=== PATIENT | male | born 1940 | race Caucasian/White ===

== ENCOUNTER → 2020-08-05 | Outpatient (CLI) | payer MEDICARE | END | disposition home or self-care (01) | LOC: RAH 13:58 | PROVIDERS: ATTEND Urology | DX: N20.0 Calculus of kidney (principal); R31.29 Other microscopic hematuria | CPT/HCPCS: 76770 ==

== ENCOUNTER → 2020-11-11 | Outpatient (CLI) | payer MEDICARE | END | disposition home or self-care (01) | LOC: RAH 10:00 | PROVIDERS: ATTEND Urology | DX: N28.1 Cyst of kidney, acquired (principal); N40.0 Benign prostatic hyperplasia without lower urinary tract symptoms; M25.80 Other specified joint disorders, unspecified joint | CPT/HCPCS: 74176 ==

== ENCOUNTER 2024-09-07 08:00 | Inpatient (IN) | payer MEDICARE ==
--- NOTE | 2024-09-06 10:03 | EKG ---
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
[2024-09-06 10:11] LABS: BASOPHILS # (AUTO) 0.03 K/uL (0.00-0.20); BASOPHILS % (AUTO) 0.5 % (0.0-5.0); EOSINOPHILS # (AUTO) 0.07 K/uL (0.00-0.70); EOSINOPHILS % (AUTO) 1.1 % (0.0-8.0); HEMATOCRIT 41.2 % (42-54); IMMATURE GRANULOCYTE ABSOLUTE 0.02 K/uL (0-1); LYMPHOCYTES # (AUTO) 1.2 K/uL (1.0-4.8); LYMPHOCYTES % (AUTO) 17.9 % (21.0-51.0); MEAN CORPUSCULAR HEMOGLOBIN 33.2 pg (27.0-33.0); MEAN CORPUSCULAR HGB CONC 33.3 g/dL (32.0-36.0); MEAN CORPUSCULAR VOLUME 99.8 fL (79-99); MONOCYTES # (AUTO) 0.7 K/uL (0.1-1.0); MONOCYTES % (AUTO) 11.1 % (3.0-13.0); NEUTROPHILS # (AUTO) 4.5 K/uL (1.8-7.7); NEUTROPHILS % (AUTO) 69.1 % (40.0-77.0); PLATELET COUNT (AUTO) 196 K/uL (130-400); RED BLOOD CELL COUNT(AUTO) 4.13 MIL/uL (4.50-6.20); RED CELL DISTRIBUTION WIDTH 13.5 % (11.0-15.5); WHITE BLOOD COUNT (AUTO) 6.5 K/uL (4.8-10.8)
[2024-09-06 10:28] VITALS: BP 130/72; PULSE 73; RESP 16; TEMP 97.3
[2024-09-06 10:28] LABS: ALBUMIN 3.4 g/dL (3.5-5.0); BILIRUBIN,TOTAL 0.8 mg/dL (0.2-1.0); CREATININE 1.1 mg/dL (0.5-1.3); POTASSIUM 4.2 mmol/L (3.5-5.1); TOTAL PROTEIN, SERUM 6.4 g/dL (6.0-8.3)
[2024-09-06 10:31] LABS: INR 1.01 (0.85-1.15); PROTHROMBIN TIME 10.9 SEC (9.6-11.6)
[2024-09-06 10:33] LABS: PARTIAL THROMBOPLASTIN TIME 25.7 SEC (26.3-35.5)
[~2024-09-07] VITALS: Ht 175.3 cm; Wt 73.5 kg
[~2024-09-07 08:00] MED LIST: AMLO-257 PO; DUTA0.5C37 PO; LISI20TA24 PO; METO-391 PO; OMEP20CA12 PO; SENN-31 PO; TAMS-1 PO
[2024-09-11] VITALS (30 sets, daily range): BP systolic 142–200; BP diastolic 60–89; PULSE 50–97; RESP 12–18; TEMP 97.1–98.5; O2SAT 95–99
[2024-09-11] MEDS: LACTATED RINGERS 1000ML 1,000 ML IV ONE (08:15)
[2024-09-11] MEDS: MEROPENEM 1 GM VIAL ONE (08:16)
[2024-09-11] MEDS ORDERED: GLYCOPYRROLATE 0.2 MG/ML 5 ML VIAL ONE (08:20)
[2024-09-11] MEDS ORDERED: ondanSETRON 4MG INJ ONE (08:20)
[2024-09-11] MEDS ORDERED: dexaMETHasone SOD PHOSPHATE 4 MG/ML 1ML VIAL ONE (08:20)
[2024-09-11] MEDS ORDERED: NEOSTIGMINE METHYLSULFATE 1MG/ML IV ONE (08:20)
[2024-09-11] MEDS ORDERED: proPOFol 10 MG/ML 20ML VIAL IV ONE (08:20)
[2024-09-11] MEDS ORDERED: MIDAZOLAM HCL 1 MG/ML 2ML VIAL ONE (08:20)
[2024-09-11] MEDS ORDERED: rocuRONium bROMide 10MG/1ML 5ML VL ONE ×2 (08:20→09:50)
[2024-09-11] MEDS ORDERED: phenylEPHRINE HCL 10 MG/ML 1ML VIAL IV ONE (08:21)
[2024-09-11] MEDS ORDERED: FENTanyl CITRate PF 50 MCG/1 ML 2ML VIAL ONE ×2 (08:21→10:42)
[2024-09-11] MEDS ORDERED: LIDOCAINE 1%-EPI 1:100,000 20 ML VIAL ONE (08:34)
[2024-09-11] MEDS ORDERED: BUPIvacaine/PF 0.5% 30ML VIAL ONE (08:34)
[2024-09-11] MEDS ORDERED: LIDOCAINE PF 100MG/5ML (2%) SYRINGE 5ML ONE (08:38)
[2024-09-11] MEDS: LIDOCAINE 1%-EPI 1:100,000 20 ML VIAL IJ ONE (09:05)
[2024-09-11] MEDS: acetaMINOPHEN 100 ML ONE (11:20)
[2024-09-11] MEDS: hydroMORPHone 1 MG INJ ONE (11:28)
--- NOTE | 2024-09-11 11:28 | OP ---
Operative Note: DATE OF PROCEDURE: 09/11/24 SURGEON: PRATIBHA MELÉNDEZ MD HIGHWAY MAINTENANCE TECHNICIAN: [None] ANESTHESIA: [General plus local] PREOPERATIVE DIAGNOSIS: [Adenocarcinoma of the cecum] POSTOPERATIVE DIAGNOSIS: [Same] PROCEDURE: [Robotic assisted right hemicolectomy. Creation of an omental flap. Infusion of ICG for assessment of graft perfusion.] ESTIMATED BLOOD LOSS: [15 mL] INDICATIONS: [This is 84-year-old male who was found to have an adenocarcinoma of the cecum. During the staging he was found to have a 2nd primary in the lung, and after discussion with patient's oncology team decision was made to proceed with right hemicolectomy first with subsequent completion of treatment for his lung primary. After extensive discussion with the patient he was advised to undergo a resection and all other indicated procedures. Risks were abrasions and alternatives were explained in detail to the patient who granted consent. All questions were answered to the patient's satisfaction.] DESCRIPTION OF PROCEDURE: [The patient was identified in the holding area transferred to the OR placed supine on the operative table. Venodyne boots were placed for DVT prophylaxis. 1 g of IV meropenem was given within the hour of skin incision. Time-out was conducted, general anesthesia was given and the patient was prepped and draped in the usual sterile fashion. We gained access to the abdomen via Veress needle in the supraumbilical region, pneumoperitoneum was created to 15 mmHg. Under direct vision and assist port was placed in the left flank of the patient and connected to the AirSeal device. 8 mm ports were placed in the left paraumbilical region right paraumbilical region and right lower quadrant, a 12 mm port was then placed in the left lower quadrant of the patient in a horizontal fashion. The patient was tilted with the right side up and the [place] excise system was docked. We began the procedure by mobilizing the omentum from the transverse colon. This was done with no complications. The hepatic flexure was then taken down and the ascending colon mobilized all the way to the terminal ileum. Afterwards a window was created under the mesentery and the ileocolic pedicle. The pedicle was staple at the level of the duodenum were robotic laparoscopic stapler with a white load. Medial dissection was performed and the middle colic vessels, the right branch, was d issected and taken with the vessel sealer device. The transverse colon and the terminal ileum were identified for future transection. Having mobilized the colon the terminal ileum was then transected with a laparoscopic robotic blue load stapler and the same procedure performed in transverse colon. Specimen was then moved out of the surgical site and planned for the ileocolonic anastomosis was done. The terminal ileum and the transverse colon were lined up in the isoperistaltic fashion. 3 mL of ICG were given an excellent perfusion seen. Colotomy and enterotomy were performed and the anastomosis created with the robotic stapler blue load 60 mm. Excellent anastomosis was obtained as well as hemostasis. The common enterotomy was then closed in two layers with 3-0 running V lock sutures. ICG had been given an excellent perfusion seen pre after the anastomosis was completed. Having done this a step and omental flap was created and the anastomosis covered with it. The right upper quadrant and right flank were profusely irrigated and aspirated until clear. At this point having been satisfied with the dissection she has was made to Dr. Lopez and extract the specimen. Findings to incision was made the specimen extracted and passed to the back table. The 12 mm port was closed with a 0 Vicryl suture followed by Monocryl in all the port sites. The fundus incision was closed in layers with Vicryl and PDS. There was profusely irrigated with saline and Betadine. 4-0 Monocryl was used to close it followed by Dermabond no wounds. Local anesthesia had been injected. Count was done x2 per nursing and was correct. There were no complications, I was present and scrubbed for the entire case.] PRATIBHA BERGERON MD Sep 11, 2024 11:28
[2024-09-11] MEDS ORDERED: morPHINE 4 MG SYG IV PRN (11:30)
[2024-09-11] MEDS ORDERED: ondanSETRON 4MG INJ IVP PRN (11:30)
[2024-09-11] MEDS ORDERED: acetaMINOPHEN 325 MG TAB PO PRN (11:30)
[2024-09-11] MEDS: hydrALAZine 20MG/ML VIAL ONE (11:52)
[2024-09-11] MEDS: HEParin 5,000 UNIT VIAL SQ SCH (14:00)
[2024-09-11] MEDS: HYDROcodone/APAP 5/325 1 TAB TABLET PO PRN (15:26)
[2024-09-11] MEDS: INDOCYANINE GREEN 25 MG VIAL IJ ONE (18:11)
[2024-09-11] MEDS: hydrALAZine 20MG/ML VIAL IV PRN (18:13)
[2024-09-11] MEDS: D5W-1/2 NS/20MEQ KCL 1,000 ML IV SCH (18:29)
[2024-09-11] MEDS: tamSULOsin HCL 0.4 MG CAP.ER.24H PO SCH (19:53)
[2024-09-11] MEDS: LISINOPRIL 20 MG TABLET PO SCH (19:53)
[2024-09-11] MEDS: PANTOPrazole 40 MG TAB DR PO SCH (19:53)
--- NOTE | 2024-09-12 02:29 | CONS ---
[facility] CONSULTATION NOTE Date of Service: Sep 11, 2024 Reason for Consultation: [ Medical Management ] Requesting Physician: [ Dr. Damir Haider ] HISTORY OF PRESENT ILLNESS: 84-year-old male with history of hypertension, hyperlipidemia, coronary artery disease, BPH, with history of 3 cm cecal mass noted on colonoscopy from 06/2024 as well as history of lung mass being followed by Dr. Cruz as outpatient. Patient underwent robotic assisted right hemicolectomy for management of jose ocarcinoma of the cecum today. Consultation with hospitalist was requested for medical management. Patient was seen postoperatively and states that pain is well controlled. Denies any chest pain, shortness of breath, headache or focal weakness of upper or lower extremities. Patient lives by himself at home and has a friend who checks on him regularly. States that he did not take any of his antihypertensive today or last night prior to the operative procedure today. REVIEW OF SYSTEMS CONSTITUTIONAL: Denies fevers, chills, or night sweats. No unintentional weight loss reported. NEUROLOGICAL: Denies headache, amaurosis fugax, motor weakness, sensory deficit, vertigo/spinning sensation, gait abnormalities, or tremors. ENT: No hearing loss, otalgia, otorrhea, rhinitis, rhinorrhea, hoarseness, or sore throat. CARDIOVASCULAR: Denies any exertional angina, dyspnea on exertion, orthopnea, paroxysmal nocturnal dyspnea, palpitations, life-threatening arrhythmias, claudication. PULMONARY: Denies any shortness of breath, cough, phlegm/sputum, hemoptysis, pleuritic chest pain. SLEEP: Denies morning headaches, daytime somnolence or napping. Denies difficulty falling asleep, staying asleep, waking from sleep. Denies knowledge of snoring. GASTROINTESTINAL: Denies any type of dysphagia to either liquids or solids. Denies nausea, vomiting, pyrosis, early satiety, abdominal pain, diarrhea, constipation, or changes in stool consistency or caliber. Denies coffee-ground emesis, hematemesis, hematochezia, or melanotic stools. GENITOURINARY: Denies frequency, urgency, nocturia, hematuria or incontinence (Storage/Irritative symptoms.) Low urinary stream, straining to void, urinary intermittency or hesitancy, splitting of the voiding stream, terminal dribbling. ENDOCRINOLOGIC: Denies polyuria, polydipsia, polyphagia or heat/cold intolerances. HEMATOLOGIC: Denies thrombophilia/previous clots, or coagulopathy/bleeding disorders. ONCOLOGIC: Denies personal history of malignancy. DERMATOLOGIC: Denies rashes or pruritus. PSYCHIATRIC: Denies any suicidal or homicidal ideation. Denies hallucinations. PAST MEDICAL HISTORY: Hypertension, coronary artery disease status post PTCA in 1990, hyperlipidemia, nonobstructive carotid artery disease, history of lung mass being followed by Oncology as outpatient, BPH, hyperlipidemia, Wall's esophagus, GERD, diverticulosis,, gastritis, chronic kidney disease, sleep apnea PAST SURGICAL HISTORY: History of sinus surgery, history of PTCA for coronary artery disease in 1990, right shoulder surgery, history of EGD and colonoscopy in 06/2024 PAST SOCIAL HISTORY: Currently denies any active smoking or alcohol consumption FAMILY HISTORY: History of arthritis in father and heart disease in mother Allergies: No known drug allergies Home medications: Amlodipine 5 mg daily, dutasteride 0.5 mg daily, lisinopril 20 mg q.h.s., metoprolol succinate 50 mg daily, omeprazole 20 mg q.h.s., senna/docusate one tablet daily, Flomax 0.4 mg HS Coded Allergies: No Known Drug Allergies (Unverified Allergy, Unknown, 02/15/17) PHYSICAL EXAM GENERAL APPEARANCE: The patient is awake, alert, and oriented, in no acute cardiopulmonary distress. NEUROLOGICAL: Cranial nerves II-XII grossly intact. Motor is 5/5 in bilateral upper and lower extremities proximal to distal. No sensory deficits. HEENT: Face is symmetric. Pupils are equal and reactive. Extraocular movements are intact. NECK: Supple. No JVD. No thyromegaly. No submental, submandibular, pre- /postauricular, occipital or supraclavicular lymphadenopathy. CHEST: Normal chest expansion. No Telemetry. LUNGS: Absence of any rales, rhonchi or any wheezing. CARDIOVASCULAR: Regular. S1 and S2 normal. No appreciable rubs, murmurs or gallops. ABDOMEN: Soft, nontender, and nondistended. There is no rebound, voluntary guarding, or rigidity. Surgical incisions look clean dry and intact : Deferred. No Flower. EXTREMITIES: Non-edematous and not cyanotic. No clubbing. Good capillary refill. SKIN: No skin breakdown. Vital Sign (Last 24 Hours) 09/11/24 09/11/24 19:35 19:55 Temp 98.4 Pulse 75 Resp 17 B/P (MAP) 162/73 Pulse Ox 95 O2 Delivery Room Air* O2 Flow Rate 0 FiO2 21 Intake & Output (last 24hrs) 09/11/24 09/11/24 09/12/24 15:00 23:00 07:00 Intake Total 250.0 ml 300 ml Balance 250.0 ml 300 ml LABS: Labs including CBC, CMP were reviewed from 09/06/2024 DIAGNOSTICS / RADIOLOGY: SERVICE 1101 REASON: Malignant neoplasm of cecum ORDERING PHYSICIAN: FAROOQ LEONARD MD PROCEDURE: CAP WWO - CT CHEST/ABD/PELV W/WO CONTRAS CT CHEST/ABD/PELV W/WO CONTRAS REASON: Malignant neoplasm of cecum COMPARISON: 11/11/2020 TECHNIQUE: Images are obtained from thoracic inlet through the perineum following IV contrast, 100 cc Omnipaque 350. Oral contrast was administered as well. FINDINGS: There is spiculated mass in the right lung just lateral to the midportion of the hilum. This is present along the minor fissure. The mass appears flattened along the fissure in the anterior to posterior dimension. Measurements are 2.5 x 2.6 cm axial and 1.6 cm superior to inferior. CT findings appear consistent with neoplasm, however chest x-ray from 2021 shows a similar density in the mid lung field. This lesion is centrally located and not well suited for percutaneous biopsy, biopsy via bronchoscopy may be possible. Alternatively a PET/CT scan could be performed. Lungs are otherwise clear. There is no evidence of metastatic pulmonary nodule. There are moderate emphysematous changes. There is no hilar or mediastinal lymphadenopathy. Chest wall structures appear unremarkable. There are several cysts in the liver. There are no solid focal liver lesions. Spleen, kidneys and pancreas appear normal with the exception of a 4 cm left renal cyst. There is a stone in the gallbladder. There is also evidence of cholesterolosis in the gallbladder wall. There is no wall thickening or edema. There are atherosclerotic changes in the aorta and iliac vessels. There is no retroperitoneal or pelvic lymphadenopathy. There is a focal soft tissue mass anterolateral wall of the cecum measuring 1.5 x 2.7 x 0.8 cm. This does not appear to extend through the lateral wall of the cecum. Bowel loops appear otherwise unremarkable throughout. The prostate is enlarged at 6.7 x 5.9 x 6.3 cm. Seminal vesicles are symmetrical. Pelvic soft tissues appear otherwise unremarkable. There are no focal osseous lesions. IMPRESSION: 1. Spiculated mass in the lung just lateral to the right pulmonary hilum, along the central portion of the minor fissure, 1.6 x 2.5 x 2.6 cm. 2. Appearance is suspicious for neoplasm, biopsy or PET/CT scan recommended for further evaluation 3. There is a similar density seen on previous chest x-ray 2021 which could indicate this lesion is scarring rather than tumor, however the CT appearance is suspicious for tumor. 4. Mass along the lateral wall of the cecum as described, no evidence of transmural extension. 5. Otherwise unremarkable CT chest, abdomen and pelvis. DICTATED BY: KEITH OTOOLE MD DATE: 07/05/24 1222 ELECTRONICALLY SIGNED BY: KEITH OTOOLE MD DATE: 07/05/24 1238 ASSESSMENT: Status post robotic assisted right hemicolectomy for adenocarcinoma of the cecum , by Damir Bar, 09/11/2024 History of spiculated right lung mass being followed by Oncology as outpatient, POA Underlying history of coronary artery disease, POA History of hypertension, POA Hyperlipidemia POA BPH, POA History of COPD, POA MARIAN, POA Octogenarian POA History of gastritis, POA History of Wall's esophagus, POA PLAN: Continue with postoperative care in medical-surgical floor per recommendations by Colorectal surgery Continue with IV fluids, continue clear liquid diet We will resume patient's home antihypertensive therapy including amlodipine 5 mg daily, metoprolol succinate mg daily, lisinopril 20 mg q.h.s., we will start p.r.n. IV hydralazine in case SBP is greater than 170 for management of hypertension Continue with IS q.4 We will request consultation with Physical therapy All labs be repeated in the morning, continue with heparin for DVT prophylaxis Date of service: 09/11/2024 Plan of care was discussed with patient at bedside, CLEVELAND Robins MD, MD Sep 12, 2024 02:29
[2024-09-12 06:00] LABS: BASOPHILS # (AUTO) 0.02 K/uL (0.00-0.20); BASOPHILS % (AUTO) 0.2 % (0.0-5.0); HEMATOCRIT 39.1 % (42-54); IMMATURE GRANULOCYTE ABSOLUTE 0.03 K/uL (0-1); LYMPHOCYTES # (AUTO) 0.8 K/uL (1.0-4.8); LYMPHOCYTES % (AUTO) 6.5 % (21.0-51.0); MEAN CORPUSCULAR HEMOGLOBIN 33.3 pg (27.0-33.0); MEAN CORPUSCULAR HGB CONC 33.5 g/dL (32.0-36.0); MEAN CORPUSCULAR VOLUME 99.5 fL (79-99); MONOCYTES % (AUTO) 8.5 % (3.0-13.0); NEUTROPHILS # (AUTO) 9.8 K/uL (1.8-7.7); NEUTROPHILS % (AUTO) 84.5 % (40.0-77.0); PLATELET COUNT (AUTO) 218 K/uL (130-400); RED BLOOD CELL COUNT(AUTO) 3.93 MIL/uL (4.50-6.20); RED CELL DISTRIBUTION WIDTH 13.6 % (11.0-15.5); WHITE BLOOD COUNT (AUTO) 11.6 K/uL (4.8-10.8)
[2024-09-12 06:15] LABS: CREATININE 1.2 mg/dL (0.5-1.3); POTASSIUM 4.3 mmol/L (3.5-5.1)
[2024-09-12 08:00] VITALS: BP 155/69; PULSE 65; RESP 18; TEMP 98.1
--- NOTE | 2024-09-12 08:27 | PN ---
GASTROENTEROLOGY PROGRESS NOTE Date of Consultation: Sep 12, 2024 Time of Consultation: 08:25 Events / Notes: [84 yo with adenocarcinoma of cecum who underwent a robotic right hemicolectomy, creation of omental flap and ICG infusion for assessment of graft perfusion. His VSS. He is doing very well and is sitting in chair at bedside. Respirations unlabored. BBS are clear. Abd is soft and not distended. Incision D&I oneida. Active bowel sounds x4. He states he is passing flatus. He has ambulated without difficulties. He is voiding well. He has tolerated clear liquid diet. Will advance to soft. Encouraged ambulation and I/S exercises. He verbalized understanding and agreement. Daughter supportive at bedside. Review of Systems: CONSTITUTIONAL: No malaise or change in sensation of wellbeing. ENMT: No rhinorrhea, otorrhea, sinus pain, ear ache. CARDIOVASCULAR: No angina, palpitations, orthopnea or paroxysmal dyspnea. RESPIRATORY: No SOB. GASTROINTESTINAL: No abdominal pain, nausea, vomiting, diarrhea, hematemesis, melena or change in the patient's habitual bowel movements consistency/number. GENITOURINARY: No dysuria, hematuria or change in bladder continence. MUSCULOSKELETAL: No new muscle pain or decrease in muscular strength. No new joint swelling, redness or tenderness. SKIN: No new rash. Physical Exam: GEN: Awake, alert, oriented in person, time and place, and in no acute distress sitting in chair. HEENT:No rhinorrhea. Oral pharyngeal mucosa is pink, moist and within normal limits. CHEST: Inspection, palpation of the chest were unremarkable. Lung auscultation revealed normal breath sounds bilaterally. CARDIAC: . Heart sounds are regular. ABD: Soft, non-tender and not distended. No peritoneal signs on palpation. No organomegaly. Normal bowel sounds. Incisions dry & intact oneida with dermabond EXT: No cyanosis or clubbing. No edema. SKIN: Intact. No rashes. JOINTS: No evidence of synovitis or acute arthritis. NEURO: Alert and oriented to name, place and person. Cranial nerve examination is unremarkable. No focal motor deficits. Normal speech. Strength is normal. Laboratory: [ ] Laboratory: Test 09/12/24 05:49 Range/Units White Blood Count 11.6 H 4.8-10.8 K/uL Red Blood Count 3.93 L 4.50-6.20 MIL/uL Hemoglobin 13.1 L 14.0-18.0 g/dL Hematocrit 39.1 L 42-54 % Mean Corpuscular Volume 99.5 H 79-99 fL Mean Corpuscular Hemoglobin 33.3 H 27.0-33.0 pg Mean Corpuscular Hemoglobin Concent 33.5 32.0-36.0 g/dL Red Cell Distribution Width 13.6 11.0-15.5 % Platelet Count 218 130-400 K/uL Mean Platelet Volume 9.6 7.5-10.5 fL Immature Granulocyte % (Auto) 0.3 0-1 % Neutrophils (%) (Auto) 84.5 H 40.0-77.0 % Lymphocytes (%) (Auto) 6.5 L 21.0-51.0 % Monocytes (%) (Auto) 8.5 3.0-13.0 % Eosinophils (%) (Auto) 0.0 0.0-8.0 % Basophils (%) (Auto) 0.2 0.0-5.0 % Neutrophils # (Auto) 9.8 H 1.8-7.7 K/uL Lymphocytes # (Auto) 0.8 L 1.0-4.8 K/uL Monocytes # (Auto) 1.0 0.1-1.0 K/uL Eosinophils # (Auto) 0.00 0.00-0.70 K/uL Basophils # (Auto) 0.02 0.00-0.20 K/uL Absolute Immature Granulocyte (auto 0.03 0-1 K/uL Nucleated Red Blood Cells 0.0 0.0-0.19 % Sodium Level 140 136-145 mmol/L Potassium Level 4.3 3.5-5.1 mmol/L Chloride Level 104 101-111 mmol/L Carbon Dioxide Level 29 21-32 mmol/L Blood Urea Nitrogen 13 7-18 mg/dL Creatinine 1.2 0.5-1.3 mg/dL Glomerular Filtration Rate Calc 59 >90 mL/min Random Glucose 116 H 70-105 mg/dL Total Calcium 8.6 8.5-10.1 mg/dL Current Medications Medications (Trade) Dose Ordered Sig/Yareli Route PRN Reason Start Time Stop Time Status Last Admin Dose Admin Acetaminophen (TYLenol 325MG TAB) 650 mg Q4H PRN PO TEMPERATURE GREATER THAN 101 09/11/24 11:30 10/11/24 11:29 Acetaminophen/ Hydrocodone Bitart (NORco 5/325MG) 1 tab Q4H PRN PO MODERATE PAIN (4-6) 09/11/24 11:30 09/16/24 11:29 09/12/24 01:19 1 TAB Amlodipine Besylate (NorvASC 5MG TAB) 5 mg DAILY PO 09/12/24 09:00 10/12/24 08:59 Heparin Sodium (Porcine) (HEParin 5,000 UNIT VIAL) 5,000 unit TID SQ 09/11/24 14:00 10/11/24 13:59 09/11/24 20:00 5,000 UNIT Home Med (Home Medication) DAILY PO 09/12/24 09:00 10/12/24 08:59 Hydralazine HCl (APRESOLine 20MG INJ) 10 mg Q6H PRN IV ADMINISTER FOR SBP > 170 09/11/24 18:00 10/11/24 17:59 09/11/24 18:13 10 MG Lisinopril (Prinivil 20mg) 20 mg HS PO 09/11/24 21:00 10/11/24 20:59 09/11/24 19:53 20 MG Metoprolol Succinate (TopROL XL) 50 mg DAILY PO 09/12/24 09:00 10/12/24 08:59 Morphine Sulfate (morPHINE 4MG SYG) 4 mg Q3H PRN IV SEVERE PAIN (7-10) 09/11/24 11:30 09/18/24 11:29 Ondansetron HCl (zoFRAN 4MG INJ) 4 mg Q4H PRN IVP NAUSEA 09/11/24 11:30 10/11/24 11:29 Pantoprazole Sodium (PROTonix 40MG TAB) 40 mg HS PO 09/11/24 21:00 10/11/24 20:59 09/11/24 19:53 40 MG Potassium Chloride/Dextrose/ Sod Cl 1,000 ml @ 75 mls/hr [id number] IV 09/11/24 11:30 10/11/24 11:29 09/11/24 18:29 75 MLS/HR Tamsulosin HCl (FloMAX) 0.4 mg HS PO 09/11/24 21:00 10/11/24 20:59 09/11/24 19:53 0.4 MG Assessment: [Adenocarcinoma of cecum Patient is on POD 1. He is progressing very well. He has tolerated full liquid diet without any n/v. His pain is controlled. He is ambulating well. Will advance diet. Encouraged ambulation and I/s exercises. ] Plan: [Advance diet to soft Encourage ambulation tid Encourage I/S exercises Pain meds as needed Antiemetics prn Plan for disposition in the next 24-48 yours Appreciate hospitalist's assistance in our patient care. ] TIM EMMANUEL NP Sep 12, 2024 08:27
[2024-09-12 09:23] VITALS: O2SAT 97
[2024-09-12] MEDS: amLODIPine 5 MG TAB PO SCH (09:23)
[2024-09-12] MEDS: metOPROLol sucCINATE 50 MG TAB.SR.24H PO SCH (09:23)
[2024-09-12 12:00] VITALS: BP 165/72; PULSE 65; RESP 18; TEMP 97.6
--- NOTE | 2024-09-12 14:50 | PN ---
[facility] PROGRESS NOTE Date of Service: Sep 12, 2024 Time of Service: 14:[address] Lazo SUBJECTIVE: [84-year-old male with history of hypertension, hyperlipidemia, coronary artery disease, BPH, with history of 3 cm cecal noted on colonoscopy from 06/2024 as well as history of lung mass being followed by Dr. Cruz as outpatient. Patient underwent robotic assisted right hemicolectomy for management of adenocarcinoma of the cecum. Consultation with hospitalist was requested for medical management. Patient was seen postoperatively and states that pain is well controlled. Denies any chest pain, shortness of breath, headache or focal weakness of upper or lower extremities. Patient lives by himself at home and has a friend who checks on him regularly. 09/12/24 patient was seen by nurse practitioner and physician during rounding in room 306 comfortably lying in the bed. Daughter at the bedside. Patient's WBC today is 11.6 we will continue to monitor patient in the meantime a.m. labs. Anticipated discharge within 24 to 48 hours per primary. Patient denies any shortness of breath, chest pain, nausea, vomiting or any other discomfort. ] REVIEW OF SYSTEMS CONSTITUTIONAL: Denies fevers, chills, or night sweats. No unintentional weight loss reported. NEUROLOGICAL: Denies headache, amaurosis fugax, motor weakness, sensory deficit, vertigo/spinning sensation, gait abnormalities, or tremors. ENT: No hearing loss, otalgia, otorrhea, rhinitis, rhinorrhea, hoarseness, or sore throat. CARDIOVASCULAR: Denies any exertional angina, dyspnea on exertion, orthopnea, paroxysmal nocturnal dyspnea, palpitations, life-threatening arrhythmias, claudication. PULMONARY: Denies any shortness of breath, cough, phlegm/sputum, hemoptysis, pleuritic chest pain. SLEEP: Denies morning headaches, daytime somnolence or napping. Denies d ifficulty falling asleep, staying asleep, waking from sleep. Denies knowledge of snoring. GASTROINTESTINAL: Denies any type of dysphagia to either liquids or solids. Denies nausea, vomiting, pyrosis, early satiety, abdominal pain, diarrhea, constipation, or changes in stool consistency or caliber. Denies coffee-ground emesis, hematemesis, hematochezia, or melanotic stools. GENITOURINARY: Denies frequency, urgency, nocturia, hematuria or incontinence (Storage/Irritative symptoms.) Low urinary stream, straining to void, urinary intermittency or hesitancy, splitting of the voiding stream, terminal dribbling. ENDOCRINOLOGIC: Denies polyuria, polydipsia, polyphagia or heat/cold intolerances. HEMATOLOGIC: Denies thrombophilia/previous clots, or coagulopathy/bleeding disorders. ONCOLOGIC: Denies personal history of malignancy. DERMATOLOGIC: Denies rashes or pruritus. PSYCHIATRIC: Denies any suicidal or homicidal ideation. Denies hallucinations. PHYSICAL EXAM GENERAL APPEARANCE: The patient is awake, alert, and oriented, in no acute cardiopulmonary distress. NEUROLOGICAL: Cranial nerves II-XII grossly intact. Motor is 5/5 in bilateral upper and lower extremities proximal to distal. No sensory deficits. HEENT: Face is symmetric. Pupils are equal and reactive. Extraocular movements are intact. NECK: Supple. No JVD. No thyromegaly. No submental, submandibular, pre- /postauricular, occipital or supraclavicular lymphadenopathy. CHEST: Normal chest expansion. No Telemetry. LUNGS: Absence of any rales, rhonchi or any wheezing. CARDIOVASCULAR: Regular. S1 and S2 normal. No appreciable rubs, murmurs or gallops. ABDOMEN: Soft, nontender, and nondistended. There is no rebound, voluntary guarding, or rigidity. Surgical incisions look clean dry and intact : Deferred. No Flower. EXTREMITIES: Non-edematous and not cyanotic. No clubbing. Good capillary refill. SKIN: No skin breakdown. Vital Signs (last 8hr) Date Time Temp Pulse Resp B/P (MAP) Pulse Ox O2 Delivery O2 Flow Rate FiO2 09/12/24 12:00 97.5 65 18 165/72 94 Room Air 21 09/12/24 09:23 97 Room Air* 0 21 09/12/24 08:00 98.1 65 18 155/69 97 Room Air 21 LABS: Laboratory: Test 09/12/24 05:49 Range/Units White Blood Count 11.6 H 4.8-10.8 K/uL Red Blood Count 3.93 L 4.50-6.20 MIL/uL Hemoglobin 13.1 L 14.0-18.0 g/dL Hematocrit 39.1 L 42-54 % Mean Corpuscular Volume 99.5 H 79-99 fL Mean Corpuscular Hemoglobin 33.3 H 27.0-33.0 pg Mean Corpuscular Hemoglobin Concent 33.5 32.0-36.0 g/dL Red Cell Distribution Width 13.6 11.0-15.5 % Platelet Count 218 130-400 K/uL Mean Platelet Volume 9.6 7.5-10.5 fL Immature Granulocyte % (Auto) 0.3 0-1 % Neutrophils (%) (Auto) 84.5 H 40.0-77.0 % Lymphocytes (%) (Auto) 6.5 L 21.0-51.0 % Monocytes (%) (Auto) 8.5 3.0-13.0 % Eosinophils (%) (Auto) 0.0 0.0-8.0 % Basophils (%) (Auto) 0.2 0.0-5.0 % Neutrophils # (Auto) 9.8 H 1.8-7.7 K/uL Lymphocytes # (Auto) 0.8 L 1.0-4.8 K/uL Monocytes # (Auto) 1.0 0.1-1.0 K/uL Eosinophils # (Auto) 0.00 0.00-0.70 K/uL Basophils # (Auto) 0.02 0.00-0.20 K/uL Absolute Immature Granulocyte (auto 0.03 0-1 K/uL Nucleated Red Blood Cells 0.0 0.0-0.19 % White Cell Morphology Comment See comments Sodium Level 140 136-145 mmol/L Potassium Level 4.3 3.5-5.1 mmol/L Chloride Level 104 101-111 mmol/L Carbon Dioxide Level 29 21-32 mmol/L Blood Urea Nitrogen 13 7-18 mg/dL Creatinine 1.2 0.5-1.3 mg/dL Glomerular Filtration Rate Calc 59 >90 mL/min Random Glucose 116 H 70-105 mg/dL Total Calcium 8.6 8.5-10.1 mg/dL Current Medications Medications (Trade) Dose Ordered Sig/Yareli Route PRN Reason Start Time Stop Time Status Last Admin Dose Admin Acetaminophen (TYLenol 325MG TAB) 650 mg Q4H PRN PO TEMPERATURE GREATER THAN 101 09/11/24 11:30 10/11/24 11:29 Acetaminophen/ Hydrocodone Bitart (NORco 5/325MG) 1 tab Q4H PRN PO MODERATE PAIN (4-6) 09/11/24 11:30 09/16/24 11:29 09/12/24 01:19 1 TAB Amlodipine Besylate (NorvASC 5MG TAB) 5 mg DAILY PO 09/12/24 09:00 10/12/24 08:59 09/12/24 09:23 5 MG Heparin Sodium (Porcine) (HEParin 5,000 UNIT VIAL) 5,000 unit TID SQ 09/11/24 14:00 10/11/24 13:59 09/12/24 13:57 5,000 UNIT Home Med (Home Medication) DAILY PO 09/12/24 09:00 10/12/24 08:59 09/12/24 12:51 1 EACH Hydralazine HCl (APRESOLine 20MG INJ) 10 mg Q6H PRN IV ADMINISTER FOR SBP > 170 09/11/24 18:00 10/11/24 17:59 09/11/24 18:13 10 MG Lisinopril (Prinivil 20mg) 20 mg HS PO 09/11/24 21:00 10/11/24 20:59 09/11/24 19:53 20 MG Metoprolol Succinate (TopROL XL) 50 mg DAILY PO 09/12/24 09:00 10/12/24 08:59 09/12/24 09:23 50 MG Morphine Sulfate (morPHINE 4MG SYG) 4 mg Q3H PRN IV SEVERE PAIN (7-10) 09/11/24 11:30 09/18/24 11:29 Ondansetron HCl (zoFRAN 4MG INJ) 4 mg Q4H PRN IVP NAUSEA 09/11/24 11:30 10/11/24 11:29 Pantoprazole Sodium (PROTonix 40MG TAB) 40 mg HS PO 09/11/24 21:00 10/11/24 20:59 09/11/24 19:53 40 MG Potassium Chloride/Dextrose/ Sod Cl 1,000 ml @ 75 mls/hr [id number] IV 09/11/24 11:30 09/12/24 13:49 DC 09/11/24 18:29 75 MLS/HR Tamsulosin HCl (FloMAX) 0.4 mg HS PO 09/11/24 21:00 10/11/24 20:59 09/11/24 19:53 0.4 MG DIAGNOSTICS / RADIOLOGY: [ ] ASSESSMENT: Status post robotic assisted right hemicolectomy for adenocarcinoma of the cecum, by Damir Bar, 09/11/2024 History of spiculated right lung mass being followed by Oncology as outpatient, POA Underlying history of coronary artery disease, POA History of hypertension, POA Hyperlipidemia POA BPH, POA History of COPD, POA MARIAN, POA Octogenarian POA History of gastritis, POA History of Wall's esophagus, POA PLAN: Continue with postoperative care in medical-surgical floor per recommendations by Colorectal surgery Continue with IV fluids, continue clear liquid diet We will resume patient's home antihypertensive therapy including amlodipine 5 mg daily, metoprolol succinate mg daily, lisinopril 20 mg q.h.s., we will start p.r.n. IV hydralazine in case SBP is greater than 170 for management of hypertension Continue with IS q.4 We will request consultation with Physical therapy All labs be repeated in the morning continue with heparin for DVT prophylaxis ATTESTATION BY PHYSICIAN I have seen and examined the patient. I reviewed the documentation, medical decision making, and treatment plan as noted by the mid-level provider above. I agree with the findings and plan of care. Karma Lazo MD, KATARZYNA B QUANTITATIVE CONSULTANT Sep 12, 2024 14:50
[2024-09-12 16:00] VITALS: BP 165/76; PULSE 71; RESP 18; TEMP 98.1
[2024-09-12 20:00] VITALS: BP 161/72; PULSE 67; RESP 18; TEMP 98.1
[2024-09-12 22:53] VITALS: O2SAT 97
[2024-09-13] VITALS: BP 166/72; PULSE 72; RESP 18; TEMP 98.7
[2024-09-13 04:00] VITALS: BP 160/73; PULSE 67; RESP 18; TEMP 98.6
[2024-09-13 05:23] LABS: BASOPHILS # (AUTO) 0.01 K/uL (0.00-0.20); BASOPHILS % (AUTO) 0.1 % (0.0-5.0); HEMATOCRIT 34.6 % (42-54); IMMATURE GRANULOCYTE ABSOLUTE 0.02 K/uL (0-1); LYMPHOCYTES # (AUTO) 0.7 K/uL (1.0-4.8); LYMPHOCYTES % (AUTO) 8.3 % (21.0-51.0); MEAN CORPUSCULAR HEMOGLOBIN 32.9 pg (27.0-33.0); MEAN CORPUSCULAR HGB CONC 33.5 g/dL (32.0-36.0); MONOCYTES % (AUTO) 12.1 % (3.0-13.0); NEUTROPHILS # (AUTO) 6.8 K/uL (1.8-7.7); NEUTROPHILS % (AUTO) 79.3 % (40.0-77.0); PLATELET COUNT (AUTO) 162 K/uL (130-400); RED BLOOD CELL COUNT(AUTO) 3.53 MIL/uL (4.50-6.20); RED CELL DISTRIBUTION WIDTH 13.6 % (11.0-15.5); WHITE BLOOD COUNT (AUTO) 8.5 K/uL (4.8-10.8)
[2024-09-13 05:37] LABS: ALBUMIN 2.7 g/dL (3.5-5.0); CREATININE 1.1 mg/dL (0.5-1.3); MAGNESIUM 1.8 mg/dL (1.80-2.40); POTASSIUM 4.1 mmol/L (3.5-5.1); TOTAL PROTEIN, SERUM 5.3 g/dL (6.0-8.3)
--- NOTE | 2024-09-13 07:54 | DS ---
Discharge Summary DIAGNOSE(S): [Adenocarcinoma of cecum] Procedure: [Robotic assisted right hemicolectomy. Creation of an omental flap. Infusion of ICG for assessment of graft perfusion. HOSPITAL COURSE SUMMARY: [The patient has progressed well. He is tolerating soft diet without any n/v. He is ambulating well. He has had several watery stools. His pain is controlled. Plan for discharge today. HOme care instruction s with ER warnings given. Instructed to keep f/u appt at [facility] on 09/25/24 at 8:30am. ] SHIPPING AND RECEIVING ASSISTANT(S): [Hospitalists] DISCHARGE INSTRUCTIONS: [ Regular diet Ambulate tid Continue with I/S exercises No heavy lifting, pushing or pulling objects greater than 15lbs, no squatting, or twisting Report any n/v, increase in abdominal pain, fever, chest pain or sob f/u at [facility] on 09/25/24 at 8:30am at [facility] [place]. Appreciate hospitalist's assistance in our patient care. ] Home Meds Reported Medications Omeprazole (Omeprazole) 20 Mg Capsule.dr, 20 MG PO HS, CAP 11/22/21 Tamsulosin HCl (Flomax) 0.4 Mg Cap.er.24h, 0.4 MG PO HS, CAPSULE. 11/22/21 Lisinopril (Lisinopril) 20 Mg Tablet, 20 MG PO HS, TAB 11/22/21 Dutasteride (Dutasteride) 0.5 Mg Capsule, 0.5 MG PO DAILY, CAP 11/22/21 Sennosides/Docusate Sodium (Sennosides-Docusate Sodium Tab) 1 Each Tablet, 1 EACH PO DAILY, TAB 11/22/21 Amlodipine Besylate (Amlodipine Besylate) 5 Mg Tablet, 5 MG PO DAILY, TAB 11/22/21 Metoprolol Succinate (Metoprolol Succinate) 50 Mg Tab.er.24h, 50 MG PO DAILY, TAB 11/22/21 Time spent arranging discharge: 1-30 minutes TIM EMMANUEL NP Sep 13, 2024 07:54
[2024-09-13 08:00] VITALS: O2SAT 92
--- NOTE | 2024-09-13 11:28 | PN ---
[facility] PROGRESS NOTE Date of Service: Sep 13, 2024 Time of Service: 11:[address] Andrews SUBJECTIVE: [84-year-old male with history of hypertension, hyperlipidemia, coronary artery disease, BPH, with history of 3 cm cecal noted on colonoscopy from 06/2024 as well as history of lung mass being followed by Dr. Cruz as outpatient. Patient underwent robotic assisted right hemicolectomy for management of adenocarcinoma of the cecum. Consultation with hospitalist was requested for medical management. Patient was seen postoperatively and states that pain is well controlled. Denies any chest pain, shortness of breath, headache or focal weakness of upper or lower extremities. Patient lives by himself at home and has a friend who checks on him regularly. 09/12/24 patient was seen by nurse practitioner and physician during rounding in room 306 comfortably lying in the bed. Daughter at the bedside. Patient's WBC today is 11.6 we will continue to monitor patient in the meantime a.m. labs. Anticipated discharge within 24 to 48 hours per primary. Patient denies any shortness of breath, chest pain, nausea, vomiting or any other discomfort. 09/13/24 patient was seen by nurse practitioner and physician during rounding comfortably lying in the bed. Patient was discharged by primary today patient was tolerating soft diet any nausea or vomiting. Patient was also pain controlled. Patient denies any shortness of breath, chest pain, nausea, vomiting or any other discomfort at this moment] REVIEW OF SYSTEMS CONSTITUTIONAL: Denies fevers, chills, or night sweats. No unintentional weight loss reported. NEUROLOGICAL: Denies headache, amaurosis fugax, motor weakness, sensory def icit, vertigo/spinning sensation, gait abnormalities, or tremors. ENT: No hearing loss, otalgia, otorrhea, rhinitis, rhinorrhea, hoarseness, or sore throat. CARDIOVASCULAR: Denies any exertional angina, dyspnea on exertion, orthopnea, paroxysmal nocturnal dyspnea, palpitations, life-threatening arrhythmias, claudication. PULMONARY: Denies any shortness of breath, cough, phlegm/sputum, hemoptysis, pleuritic chest pain. SLEEP: Denies morning headaches, daytime somnolence or napping. Denies difficulty falling asleep, staying asleep, waking from sleep. Denies knowledge of snoring. GASTROINTESTINAL: Denies any type of dysphagia to either liquids or solids. Denies nausea, vomiting, pyrosis, early satiety, abdominal pain, diarrhea, constipation, or changes in stool consistency or caliber. Denies coffee-ground emesis, hematemesis, hematochezia, or melanotic stools. GENITOURINARY: Denies frequency, urgency, nocturia, hematuria or incontinence (Storage/Irritative symptoms.) Low urinary stream, straining to void, urinary intermittency or hesitancy, splitting of the voiding stream, terminal dribbling. ENDOCRINOLOGIC: Denies polyuria, polydipsia, polyphagia or heat/cold intolerances. HEMATOLOGIC: Denies thrombophilia/previous clots, or coagulopathy/bleeding disorders. ONCOLOGIC: Denies personal history of malignancy. DERMATOLOGIC: Denies rashes or pruritus. PSYCHIATRIC: Denies any suicidal or homicidal ideation. Denies hallucinations. PHYSICAL EXAM GENERAL APPEARANCE: The patient is awake, alert, and oriented, in no acute cardiopulmonary distress. NEUROLOGICAL: Cranial nerves II-XII grossly intact. Motor is 5/5 in bilateral upper and lower extremities proximal to distal. No sensory deficits. HEENT: Face is symmetric. Pupils are equal and reactive. Extraocular movements are intact. NECK: Supple. No JVD. No thyromegaly. No submental, submandibular, pre- /postauricular, occipital or supraclavicular lymphadenopathy. CHEST: Normal chest expansion. No Telemetry. LUNGS: Absence of any rales, rhonchi or any wheezing. CARDIOVASCULAR: Regular. S1 and S2 normal. No appreciable rubs, murmurs or gallops. ABDOMEN: Soft, nontender, and nondistended. There is no rebound, voluntary guarding, or rigidity. Surgical incisions look clean dry and intact : Deferred. No Flower. EXTREMITIES: Non-edematous and not cyanotic. No clubbing. Good capillary r efill. SKIN: No skin breakdown. Vital Signs (last 8hr) Date Time Temp Pulse Resp B/P (MAP) Pulse Ox O2 Delivery O2 Flow Rate FiO2 09/13/24 08:00 92 Room Air* 0 21 09/13/24 04:00 98.6 67 18 160/73 92 Room Air LABS: Laboratory: Test 09/13/24 04:54 09/12/24 05:49 Range/Units White Blood Count 8.5 # 4.8-10.8 K/uL Red Blood Count 3.53 L 4.50-6.20 MIL/uL Hemoglobin 11.6 L 14.0-18.0 g/dL Hematocrit 34.6 L 42-54 % Mean Corpuscular Volume 98.0 79-99 fL Mean Corpuscular Hemoglobin 32.9 27.0-33.0 pg Mean Corpuscular Hemoglobin Concent 33.5 32.0-36.0 g/dL Red Cell Distribution Width 13.6 11.0-15.5 % Platelet Count 162 # 130-400 K/uL Mean Platelet Volume 10.2 7.5-10.5 fL Immature Granulocyte % (Auto) 0.2 0-1 % Neutrophils (%) (Auto) 79.3 H 40.0-77.0 % Lymphocytes (%) (Auto) 8.3 L 21.0-51.0 % Monocytes (%) (Auto) 12.1 3.0-13.0 % Eosinophils (%) (Auto) 0.0 0.0-8.0 % Basophils (%) (Auto) 0.1 0.0-5.0 % Neutrophils # (Auto) 6.8 1.8-7.7 K/uL Lymphocytes # (Auto) 0.7 L 1.0-4.8 K/uL Monocytes # (Auto) 1.0 0.1-1.0 K/uL Eosinophils # (Auto) 0.00 0.00-0.70 K/uL Basophils # (Auto) 0.01 0.00-0.20 K/uL Absolute Immature Granulocyte (auto 0.02 0-1 K/uL Nucleated Red Blood Cells 0.0 0.0-0.19 % Sodium Level 136 136-145 mmol/L Potassium Level 4.1 3.5-5.1 mmol/L Chloride Level 101 101-111 mmol/L Carbon Dioxide Level 26 21-32 mmol/L Blood Urea Nitrogen 16 7-18 mg/dL Creatinine 1.1 0.5-1.3 mg/dL Glomerular Filtration Rate Calc 66 >90 mL/min Random Glucose 103 70-105 mg/dL Total Calcium 8.4 L 8.5-10.1 mg/dL Magnesium Level 1.80 1.80-2.40 mg/dL Total Bilirubin 1.0 0.2-1.0 mg/dL Aspartate Amino Transf (AST/SGOT) 23 10-37 U/L Alanine Aminotransferase (ALT/SGPT) 17 12-78 U/L Alkaline Phosphatase 44 L 50-136 U/L Total Protein 5.3 L 6.0-8.3 g/dL Albumin 2.7 L 3.5-5.0 g/dL White Cell Morphology Comment See comments Current Medications Medications (Trade) Dose Ordered Sig/Yareli Route PRN Reason Start Time Stop Time Status Last Admin Dose Admin Acetaminophen (TYLenol 325MG TAB) 650 mg Q4H PRN PO TEMPERATURE GREATER THAN 101 09/11/24 11:30 09/13/24 10:59 DC Acetaminophen/ Hydrocodone Bitart (NORco 5/325MG) 1 tab Q4H PRN PO MODERATE PAIN (4-6) 09/11/24 11:30 09/13/24 10:59 DC 09/12/24 01:19 1 TAB Amlodipine Besylate (NorvASC 5MG TAB) 5 mg DAILY PO 09/12/24 09:00 09/13/24 10:59 DC 09/13/24 08:51 5 MG Heparin Sodium (Porcine) (HEParin 5,000 UNIT VIAL) 5,000 unit TID SQ 09/11/24 14:00 09/13/24 10:59 DC 09/12/24 20:21 5,000 UNIT Home Med (Home Medication) DAILY PO 09/12/24 09:00 09/13/24 10:59 DC 09/13/24 08:51 1 EACH Hydralazine HCl (APRESOLine 20MG INJ) 10 mg Q6H PRN IV ADMINISTER FOR SBP > 170 09/11/24 18:00 09/13/24 10:59 DC 09/11/24 18:13 10 MG Lisinopril (Prinivil 20mg) 20 mg HS PO 09/11/24 21:00 09/13/24 10:59 DC 09/12/24 20:18 20 MG Metoprolol Succinate (TopROL XL) 50 mg DAILY PO 09/12/24 09:00 09/13/24 10:59 DC 09/13/24 08:51 50 MG Morphine Sulfate (morPHINE 4MG SYG) 4 mg Q3H PRN IV SEVERE PAIN (7-10) 09/11/24 11:30 09/13/24 10:59 DC Ondansetron HCl (zoFRAN 4MG INJ) 4 mg Q4H PRN IVP NAUSEA 09/11/24 11:30 09/13/24 10:59 DC Pantoprazole Sodium (PROTonix 40MG TAB) 40 mg HS PO 09/11/24 21:00 09/13/24 10:59 DC 09/12/24 20:18 40 MG Potassium Chloride/Dextrose/ Sod Cl 1,000 ml @ 75 mls/hr [id number] IV 09/11/24 11:30 09/12/24 13:49 DC 09/11/24 18:29 75 MLS/HR Tamsulosin HCl (FloMAX) 0.4 mg HS PO 09/11/24 21:00 09/13/24 10:59 DC 09/12/24 20:18 0.4 MG DIAGNOSTICS / RADIOLOGY: [ ] ASSESSMENT: Status post robotic assisted right hemicolectomy for adenocarcinoma of the cecum, by Damir Bar, 09/11/2024 History of spiculated right lung mass being followed by Oncology as outpatient, POA Underlying history of coronary artery disease, POA History of hypertension, POA Hyperlipidemia POA BPH, POA History of COPD, POA MARIAN, POA Octogenarian POA History of gastritis, POA History of Wall's esophagus, POA ATTESTATION BY PHYSICIAN I have seen and examined the patient. I reviewed the documentation, medical decision making, and treatment plan as noted by the mid-level provider above. I agree with the findings and plan of care. HOWIE ANDREWS MD, KATARZYNA B LOAN ANALYST Sep 13, 2024 11:28
== END 2024-09-13 10:58 | disposition home or self-care (01) | DRG 331 ==
LOC: DAHIP 09-11 06:51 → 3BH 09-11 16:50
PROVIDERS: ADMIT Surgery; ATTEND Surgery
PROC: 0DXU4ZW Transfer Omentum to Abdominal Region, Percutaneous Endoscopic Approach (ICD-10-PCS; 2024-09-11)
PROC: 8E0W4CZ Robotic Assisted Procedure of Trunk Region, Percutaneous Endoscopic Approach (ICD-10-PCS; 2024-09-11)
PROC: 4A1BXSH Monitoring of Gastrointestinal Vascular Perfusion using Indocyanine Green Dye, External Approach (ICD-10-PCS; 2024-09-11)
PROC: 0DTF4ZZ Resection of Right Large Intestine, Percutaneous Endoscopic Approach (ICD-10-PCS; principal; 2024-09-11 08:36)
DX: C18.0 Malignant neoplasm of cecum (principal); E78.5 Hyperlipidemia, unspecified; N40.0 Benign prostatic hyperplasia without lower urinary tract symptoms; G47.33 Obstructive sleep apnea (adult) (pediatric); I12.9 Hypertensive chronic kidney disease with stage 1 through stage 4 chronic kidney disease, or unspecified chronic kidney disease; I25.10 Atherosclerotic heart disease of native coronary artery without angina pectoris; G47.30 Sleep apnea, unspecified; J44.9 Chronic obstructive pulmonary disease, unspecified; N18.9 Chronic kidney disease, unspecified; Z98.61 Coronary angioplasty status; Z82.61 Family history of arthritis
CPT/HCPCS: 36415; 80048; 80053; 83735; 85025; 85610; 85730; 86850; 86900; 86901; 88309; 93005; A4344; G0378; J0360; J1100; J1171; J1644; J2003; J2185; J2250; J2371; J2405; J2704; J2710; J3010; J3480; J3490; J7030; J7120; A4215; A4216; A4221; A4222; A4223; A4600; A4649; A4663; A4930; A6260; C1769; J0665

== ENCOUNTER 2024-09-22 18:23 | Emergency (ER) | payer MEDICARE ==
[~2024-09-22] VITALS: Ht 175.3 cm; Wt 74.8 kg
--- NOTE | 2024-09-22 18:30 | ERN ---
General Chief Complaint: Urinary Retention Stated Complaint: URINARY RETENTION Time Seen by MD: 18:25 History of Present Illness Initial Comments 84-year-old male presents to the ED for evaluation of urinary retention onset today. Patient reports bladder pain, but denies any other associated symptoms at this time. Patient mentioned he had a colon mass resection on 09/15/2024 performed by . Allergies: Coded Allergies: No Known Drug Allergies (Unverified Allergy, Unknown, 02/15/17) Home Meds Reported Medications Omeprazole (Omeprazole) 20 Mg Capsule.dr, 20 MG PO HS, CAP 11/22/21 Tamsulosin HCl (Flomax) 0.4 Mg Cap.er.24h, 0.4 MG PO HS, CAPSULE.DR 11/22/21 Lisinopril (Lisinopril) 20 Mg Tablet, 20 MG PO HS, TAB 11/22/21 Dutasteride (Dutasteride) 0.5 Mg Capsule, 0.5 MG PO DAILY, CAP 11/22/21 Sennosides/Docusate Sodium (Sennosides-Docusate Sodium Tab) 1 Each Tablet, 1 EACH PO DAILY, TAB 11/22/21 Amlodipine Besylate (Amlodipine Besylate) 5 Mg Tablet, 5 MG PO DAILY, TAB 11/22/21 Metoprolol Succinate (Metoprolol Succinate) 50 Mg Tab.er.24h, 50 MG PO DAILY, TAB 11/22/21 Past Medical History Past Medical History: Cancer, Hypertension, Prostatitis Past Surgical History: Other Surgical History Other: RIGHT SHOULDER REPLACEMENT Social History Social History: Negative, Lives with family ROS Dictation Constitutional: Negative for fever,chills, and weight loss Eyes: Negative for injury, pain,redness, and discharge ENT: Negative for injury,pain or swelling Cardiovascular: Negative for chest pain, palpitations, and edema Respiratory: Negative for shortness of breath, cough, and wheezing, Abdomen/GI: Negative for abdominal pain, nausea, vomiting, diarrhea, and constipation Back: Negative for injury and pain : Positive for urinary retention, bladder pain Negative for injury, bleeding and discharge MS/Extremity: Negative for injury and deformity Skin: Negative for rash, and discoloration Neuro: Negative for headache, weakness, numbness, tingling, and seizure Psych: Negative for suicide ideation, homicidal ideation, and hallucinations Physical Exam Physical Exam Dictation General: awake, alert, NAD Head/Face: Normocephalic, atraumatic Eyes: PERRL, EOMI, vision at baseline ENT: oral cavity clear, TMs clear, no signs of infection Neck: Trachea midline, supple, no nuchal rigidity Cardiovascular: RRR, normal S1/S2, No MRGs, no JVD Respiratory: CTAB, no respiratory distress, No rales or wheezes Abdomen: Soft, moderate suprapubic tenderness, non-distended, normal bowel sounds, no guarding or rebound. Skin: Warm, dry, normal turgor, no rash MS/Extremity: Pulses equal, no cyanosis, neurovascular intact, FROM Neuro: COAx4, GCS 15, strength 5/5, CN 2-12 intact, normal cerebellar exam, normal gait, Psych: Normal behavior, mood, and affect normal MDM MDM: Differential diagnosis: Urinary retention Previous outside records reviewed: Old ER visits. Need for hospitalization: Patient does not meet criteria for hospitalization. Need for emergency major/minor surgery: No Patient's prior external medical records from other ER visits were reviewed by me as indicated. Prior testing and results from previous visits were reviewed. Prior tests were taken into account with medical decision making and resource utilization, independent historian/historians were used to obtain complete medical history. I independently interpreted the test that were performed, results were reviewed by me and considered findings on radiology if ordered. Medical management and examination interpretation discussions were had by me with other qualified healthcare professionals as indicated for the patient's care. ED Course Orders Procedure Category Date Status Time Nurse Driven Flower ANNY 09/22/24 In Process Removal Pro 18:46 Vital Signs Date Time Temp Pulse Resp B/P (MAP) Pulse Ox O2 Delivery O2 Flow Rate FiO2 09/22/24 18:53 98.8 78 20 156/84 97 Room Air* 0 21 09/22/24 18:24 98.8 64 20 173/73 99 DX & DISP Disposition: Discharge Departure Impression: Primary Impression: Urinary retention Condition: Stable Additional Instructions: FOLLOW-UP WITH PRIMARY CARE PROVIDER IN 1 TO 2 DAYS. TAKE MEDICATIONS DIRECTED HERE IN THE EMERGENCY ROOM. OKAY TO CONTINUE HOME MEDICATIONS UNLESS OTHERWISE DISCUSSED DURING YOUR VISIT IN THE EMERGENCY ROOM TODAY. RETURN TO YOUR NEAREST EMERGENCY ROOM IF SYMPTOMS WORSEN OR IF THERE IS NO IMPROVEMENT. CALL 911 IF YOU NEED IMMEDIATE ASSISTANCE. TAKE TYLENOL [id number] NEEDED AND IF NO CONTRAINDICATIONS ARE PRESENT. INCREASE ORAL HYDRATION. A WOUND CULTURE OR URINE CULTURE WAS ORDERED HERE IN THE EMERGENCY ROOM DEPARTMENT PLEASE FOLLOW-UP WITH PRIMARY CARE PROVIDER AND ADVISE THEM TO GET REPEAT PORTS FROM OUR FACILITY. IF YOU HAD ANY LEANNE WRAP/SPLINTS THAT WERE APPLIED HERE, PLEASE DO NOT REMOVE THEM UNTIL YOU SEE YOUR PRIMARY CARE OR SPECIALTY. Referrals: Referrals: KRISTAN PRINCE MD (PCP) TACOS SPRING MD Time of Disposition: 18:54 I have reviewed, & agreed with my scribe's, documentation. (Entered by Gen Ellis, acting as a scribe for Dr. Horn) I personally scribed for BENJY HORN MD ([place]) on 09/22/24 at 18:30. Electronically submitted by Gen Ellis ([employer]). I personally scribed for BENJY HORN MD ([employer]) on 09/22/24 at 18:54. Electronically submitted by Gen Ellis ([employer]). I personally scribed for BENJY HORN MD ([employer]) on 09/22/24 at 18:57. Electronically submitted by Gen Ellis ([employer]). BENJY HORN MD Sep 22, 2024 18:30
--- NOTE | 2024-09-22 18:53 | NUR ---
BLADDER SCAN PERFORMED AND 1358 FOUND. ORDER FOR DAHL OBTAINED.
--- NOTE | 2024-09-22 19:10 | NUR ---
LEG BAG ATTACHED TO PATIENT AND EDUCATION ON DAHL CARE PROVIDED TO PATIENT AND FAMILY.
[2024-09-22 19:15] VITALS: BP 163/64; PULSE 74; RESP 20; TEMP 98.4; O2SAT 97
== END 2024-09-22 19:34 | disposition home or self-care (01) ==
LOC: EDH 18:23
DX: R33.9 Retention of urine, unspecified (principal); I10 Essential (primary) hypertension; Z79.899 Other long term (current) drug therapy; Z98.890 Other specified postprocedural states
CPT/HCPCS: 51702; 99284

== ENCOUNTER 2024-10-02 19:27 | Emergency (ER) | payer MEDICARE ==
[~2024-10-02] VITALS: Ht 175.3 cm; Wt 68.9 kg
[2024-10-02 19:36] VITALS: BP 98/44; PULSE 67; RESP 20; TEMP 97
--- NOTE | 2024-10-02 19:58 | NUR ---
BLADDER SCAN READ IN EXCESS OF 280CC
--- NOTE | 2024-10-02 20:02 | ERN ---
ED Note History of Present Illness Stated Complaint: "DAHL CATH AND STILL NOT ABLE TO URINATE" Chief Complaint: Urinary Retention Time Seen by MD: 19:29 Time Seen by Midlevel: 19:33 Dictation: 84-year-old male with a history of colon CA and colon resection surgery a couple of weeks ago coming in today complaining of urinary retention. Patient states he has had a Dahl placed two weeks ago at his gastroenterology clinic, today the Dahl was removed at about 10 30 at the clinic by the provider and states has been able to urinate since. He states he has been drinking water and juices and has not been able to urinate. However patient denies having any suprapubic pain any abdominal pain, no back pain, no flank pain. Denies having any fever, nausea vomiting or diarrhea. Allergies: Coded Allergies: No Known Drug Allergies (Unverified Allergy, Unknown, 02/15/17) Home Meds Reported Medications Omeprazole (Omeprazole) 20 Mg Capsule.dr, 20 MG PO HS, CAP 11/22/21 Tamsulosin HCl (Flomax) 0.4 Mg Cap.er.24h, 0.4 MG PO HS, CAPSULE.DR 11/22/21 Lisinopril (Lisinopril) 20 Mg Tablet, 20 MG PO HS, TAB 11/22/21 Dutasteride (Dutasteride) 0.5 Mg Capsule, 0.5 MG PO DAILY, CAP 11/22/21 Sennosides/Docusate Sodium (Sennosides-Docusate Sodium Tab) 1 Each Tablet, 1 EACH PO DAILY, TAB 11/22/21 Amlodipine Besylate (Amlodipine Besylate) 5 Mg Tablet, 5 MG PO DAILY, TAB 11/22/21 Metoprolol Succinate (Metoprolol Succinate) 50 Mg Tab.er.24h, 50 MG PO DAILY, TAB 11/22/21 Past Medical History Past Medical History: Other Additional Past Medical Hx: LUNG CA Surgical History: Other Surgical History Other: BOWEL RESECTION Social History: Negative, Lives with family Review of System Dictation Constitutional: Negative for fever,chills, and weight loss Eyes: Negative for injury, pain,redness, and discharge ENT: Negative for injury,pain or swelling Cardiovascular: Negative for chest pain, palpitations, and edema Respiratory: Negative for shortness of breath, cough, and wheezing, Abdomen/GI: Negative for abdominal pain, nausea, vomiting, diarrhea, and constipation Back: Negative for injury and pain : Negative for injury, bleeding and discharge MS/Extremity: Negative for injury and deformity Skin: Negative for rash, and discoloration Neuro: Negative for headache, weakness, numbness, tingling, and seizure Psych: Negative for suicide ideation, homicidal ideation, and hallucinations Review of Systems: was completed Initial Vital Sign VS Vital Signs Date Time Temp Pulse Resp B/P (MAP) Pulse Ox O2 Delivery O2 Flow Rate FiO2 10/02/24 19:36 97.0 67 20 98/44 97 Room Air Physical Exam Dictation General: awake, alert, NAD Head/Face: Normocephalic, atraumatic Eyes: PERRL, EOMI, vision at baseline ENT: oral cavity clear, TMs clear, no signs of infection Neck: Trachea midline, supple, no nuchal rigidity Cardiovascular: RRR, normal S1/S2, No MRGs, no JVD Respiratory: CTAB, no respiratory distress, No rales or wheezes Abdomen: Soft, non-tender, non-distended, normal bowel sounds, no guarding or rebound. Skin: Warm, dry, normal turgor, no rash MS/Extremity: Pulses equal, no cyanosis, neurovascular intact, FROM Neuro: COAx4, GCS 15, strength 5/5, CN 2-12 intact, normal cerebellar exam, normal gait, Psych: Normal behavior, mood, and affect normal ED Course ED Course Orders Procedure Category Date Status Time Bladder Scan CPOE 10/02/24 Transmitted 19:36 *Nursing CPOE 10/02/24 Transmitted Communication: 19:36 Vital Signs Date Time Temp Pulse Resp B/P (MAP) Pulse Ox O2 Delivery O2 Flow Rate FiO2 10/02/24 19:36 97.0 67 20 98/44 97 Room Air Medical Decision Making MDM MDM: 84-year-old male with a history of colon CA and colon resection surgery a couple of weeks ago coming in today complaining of urinary retention. Patient states he has had a Dahl placed two weeks ago at his gastroenterology clinic, today the Dahl was removed at about 10 30 at the clinic by the provider and states has been able to urinate since. He states he has been drinking water and juices and has not been able to urinate. However patient denies having any suprapubic pain any abdominal pain, no back pain, no flank pain. Denies having any fever, nausea vomiting or diarrhea. On bladder scan patient showed 280 cc in the bladder. Dahl catheter inserted with leg bag. Educated patient that he has to follow up with the gastroenterology clinic again in 1-2 days, return if symptoms worsen. Patient verbalized understanding, answered all questions. Differential diagnosis: Dehydration, urinary retention, decreased urine output Rationale: Tests considered and ordered secondary to shared decision making include: Previous outside records reviewed: Old ER visits. Risk of complication and/or morbidity or mortality of patient management: None Medications-Per medication reconciliation Need for hospitalization: Patient does not meet criteria for hospitalization. Need for emergency major/minor surgery: No There are no social concerns with this patient. Prescription drug management Prescriptions will include symptomatic care Patient's prior external medical records from other ER visits were reviewed by me as indicated. Prior testing and results from previous visits were reviewed. Prior tests were taken into account with medical decision making and resource utilization, independent historian/historians were used to obtain complete medical history. I independently interpreted the test that were performed, results were reviewed by me and considered findings on radiology if ordered. Medical management and examination interpretation discussions were had by me with other qualified healthcare professionals as indicated for the patient's care. DX & DISP Disposition: Discharge Departure Impression: Primary Impression: Urinary retention Condition: Stable Additional Instructions: Please follow up with your specialist in 1-2 days. Return to the emergency room if any symptoms worsen. Referrals: KRISTAN PRINCE MD (PCP) Time of Disposition: 20:01 I have reviewed the case, and I agree with, Diagnosis and Plan JG RANDOLPH NP Oct 02, 2024 20:02
== END 2024-10-02 20:41 | disposition home or self-care (01) ==
LOC: EDH 19:27
DX: R33.9 Retention of urine, unspecified (principal); Z79.899 Other long term (current) drug therapy; Z98.890 Other specified postprocedural states
CPT/HCPCS: 51702; 99284

== ENCOUNTER 2024-10-04 17:40 | Emergency (ER) | payer MEDICARE ==
[~2024-10-04] VITALS: Ht 175.3 cm; Wt 68.0 kg
--- NOTE | 2024-10-04 17:55 | ERN ---
ED Note History of Present Illness Stated Complaint: DAHL CATHETER PROBLEM Chief Complaint: Urinary Catheter Problems Time Seen by MD: 17:47 Dictation: PATIENT IS AN 84-YEAR-OLD MALE COMING IN WITH A DAHL CATHETER THAT WAS PLACED AT THE [facility] LAST NIGHT IN THE EMERGENCY ROOM FOR ACUTE URINARY RETENTION. HE IS COMING IN TODAY STATING HE THINKS THAT THE URINE OUTPUT IS DECREASED. NO BLADDER SPASM OR PAIN. APPROXIMATELY 100 CC NOTED OF CLEAR LOU URINE IN LEG BAG. NO FLANK PAIN NO NAUSEA VOMITING PATIENT HAS A HISTORY OF BPH AND IS ON FLOMAX HOWEVER IS REQUESTING AN ANTIBIOTIC FOR HIS BPH. PATIENT OF . Allergies: Coded Allergies: No Known Drug Allergies (Unverified Allergy, Unknown, 02/15/17) Home Meds Reported Medications Omeprazole (Omeprazole) 20 Mg Capsule.dr, 20 MG PO HS, CAP 11/22/21 Tamsulosin HCl (Flomax) 0.4 Mg Cap.er.24h, 0.4 MG PO HS, CAPSULE.DR 11/22/21 Lisinopril (Lisinopril) 20 Mg Tablet, 20 MG PO HS, TAB 11/22/21 Dutasteride (Dutasteride) 0.5 Mg Capsule, 0.5 MG PO DAILY, CAP 11/22/21 Sennosides/Docusate Sodium (Sennosides-Docusate Sodium Tab) 1 Each Tablet, 1 EACH PO DAILY, TAB 11/22/21 Amlodipine Besylate (Amlodipine Besylate) 5 Mg Tablet, 5 MG PO DAILY, TAB 11/22/21 Metoprolol Succinate (Metoprolol Succinate) 50 Mg Tab.er.24h, 50 MG PO DAILY, TAB 11/22/21 Past Medical History Past Medical History: Other Additional Past Medical Hx: LUNG CA, LARGE INTESTINE CA Surgical History: Other Surgical History Other: BOWEL RESECTION Social History: Negative, Lives with family RN Note Reviewed/Agreed w/PFSH: Yes Review of System Dictation CONSTITUTIONAL: NEGATIVE EXCEPT FOR HPI HEAD/FACE: NEGATIVE EXCEPT FOR HPI EENT: NEGATIVE EXCEPT FOR HPI RESPIRATORY: NEGATIVE EXCEPT FOR HPI GASTROINTESTINAL/ABDOMINAL: NEGATIVE EXCEPT FOR HPI GENITOURINARY: NEGATIVE EXCEPT FOR HPI DECREASED URINE OUTPUT DAHL CATHETER MUSCULOSKELETAL: NEGATIVE EXCEPT FOR HPI INTEGUMENTARY: NEGATIVE EXCEPT FOR HPI NEUROLOGICAL/PSYCH: NEGATIVE EXCEPT FOR HPI HEMATOLOGIC/LYMPHATIC: NEGATIVE EXCEPT FOR HPI ALL SYSTEMS NEGATIVE, EXCEPT NOTED ABOVE. 13 POINT REVIEW OF SYSTEMS ASSESSED AND ALL NEGATIVE EXCEPT FOR ABOVE. Initial Vital Sign VS Vital Signs Date Time Temp Pulse Resp B/P (MAP) Pulse Ox O2 Delivery O2 Flow Rate FiO2 10/04/24 17:41 98.1 64 20 135/62 99 Room Air 10/04/24 19:09 0 21 Physical Exam Dictation VITAL SIGNS REVIEWED GENERAL APPEARANCE: ALERT, ORIENTED X 3, NO ACUTE DISTRESS, WELL DEVELOPED, NOURISHED. HEAD AND FACE: NON-TRAUMATIC. EYES: PERRL, PINK CONJUNCTIVAS, EYELID NO TRAUMA, ANTERIOR CHAMBER WITH ARCUS SENILIS. EARS: PINNAS INTACT AND NO SIGNS OF TRAUMA OR ERYTHEMA EAR CANALS CLEAR AND NO DISCHARGE TM NO ERYTHEMA NOSE: NO DISCHARGE, NO BLEEDING. OROPHARYNX: MOUTH NORMAL, TONGUE PINK, PHARYNX CLEAR,NO ERYTHEMA, TONSILS NO EXUDATES, NO ABSCESSES NOTED, MUCOUS MEMBRANE MOIST NECK: SUPPLE, NON-TENDER, NO THYROMEGALY, NO MASSES, NO JVD, NO BRUITS BREAST:DEFERRED CHEST:NO TENDERNESS, NO CREPITUS, NO PARADOXICAL MOVEMENT, NO RETRACTIONS LUNGS:CLEAR, WELL-VENTILATED, SYMMETRIC, NO RALES, NO WHEEZING, NO RHONCHI, NO STRIDOR, GOOD BREATH SOUNDS BILATERALLY HEART: REGULAR RATE, REGULAR RHYTHM, NO MURMUR, NO GALLOPS VASCULAR: NO PERIPHERAL EDEMA, ABDOMEN: SOFT, POSITIVE BOWEL SOUNDS, NONDISTENDED, NO GUARDING, NONTENDER, NO REBOUND, NO MASSES NO HEPATOMEGALY, NO SPLENOMEGALY, NO PHILLIP'S SIGN, NO HERNIAS. RECTAL: DEFERRED GENITAL: DEFERRED DAHL CATHETER TO LEG BAG LEFT. UNABLE TO PALPATE BLADDER. NO TENDERNESS WITH PALPATION APPROXIMATELY 150 CC CLEAR LOU URINE IN BAG. NEUROLOGICAL: NORMAL SPEECH, MOTOR FUNCTION INTACT, SENSORY FUNCTION INTACT MUSCULOSKELETAL: NECK NONTENDER, FULL RANGE OF MOTION, BACK NONTENDER, FULL RANGE OF MOTION, EXTREMITIES: NONTENDER, FULL RANGE OF MOTION SKIN: COLOR PINK, DRY, NO TURGOR, NO RASH, NO LACERATIONS, NO ABRASIONS, NO CONTUSIONS. LYMPHATIC: DEFERRED Results (Laboratory/Radiology) Laboratory/Radiology Laboratory Tests Test 10/04/24 18:50 Urine Color YELLOW (YELLOW) Urine Appearance CLOUDY (CLEAR) H Urine pH 5.5 (5.0-8.0) Urine Specific [place] 1.015 (1.001-1.031) Urine Protein 50 mg/dL (NEGATIVE) H Urine Glucose (UA) NEGATIVE mg/dL (NEGATIVE) Urine Ketones NEGATIVE mg/dL (NEGATIVE) Urine Occult Blood SMALL (NEGATIVE) H Urine Nitrate 2+ (NEGATIVE) H Urine Bilirubin NEGATIVE mg/dL (NEGATIVE) Urine Urobilinogen 0.2 mg/dL (0.2-1.0) Urine Leukocyte Esterase 500 Naila/uL (NEGATIVE) H Urine RBC 11-25 /HPF (0-1) H Urine WBC 51-100 /HPF (0-1) H Urine WBC Clumps (Auto) FEW /HPF (0-1) Urine Bacteria MANY /HPF (None Seen) Labs Reviewed?: Yes ED Course ED Course Orders Procedure Category Date Status Time Bladder Scan CPOE 10/04/24 Transmitted 17:52 Urinalysis Profile LAB 10/04/24 Complete 17:52 Culture Urine ALFREDO 10/04/24 In Process 19:14 Vital Signs Date Time Temp Pulse Resp B/P (MAP) Pulse Ox O2 Delivery O2 Flow Rate FiO2 10/04/24 19:09 98.1 64 20 132/62 98 Room Air* 0 21 10/04/24 17:41 98.1 64 20 135/62 99 Room Air 1940, PATIENT WILL BE TREATED FOR ACUTE CYSTITIS WITH HEMATURIA WITH LEVAQUIN. HE IS AWARE THAT HE HAD 30 ML IN HIS BLADDER OF URINE AND THAT THE DAHL CATHETER IS DRAINING. HE STATES HE HAS AN APPOINTMENT WITH IN THE NEXT WEEK. AND WAS ENCOURAGED TO KEEP IT. HE HAS ALREADY TAKEN FLOMAX 0.8 DAILY. Medical Decision Making MDM MEDICAL DISCHARGE MAKING BASED ON BLADDER SCAN AND URINALYSIS. BLADDER SCAN SHOWED 30 ML IN THE BLADDER AND DAHL IS DRAINING PATIENT HAS CYSTITIS WITH HEMATURIA AND WE WILL BE GIVEN LEVAQUIN PATIENT ALREADY ON FLOMAX AND WE WILL BE DISCHARGED HOME TO KEEP HIS APPOINTMENT WITH UROLOGY DX & DISP Disposition: Discharge Departure Impression: Primary Impression: Dahl catheter in place Additional Impressions: Acute cystitis with hematuria, History of benign prostatic hyperplasia Condition: Stable Scripts Levofloxacin (Levofloxacin) 500 Mg Tablet 1 TAB PO DAILY for 10 Days, #10 TAB 0 Refills Prov: PAPO ROMERO INFORMATION RESOURCES MANAGER 10/04/24 Additional Instructions: FOLLOW-UP WITH PRIMARY CARE PROVIDER IN 1 TO 2 DAYS. TAKE MEDICATIONS DIRECTED HERE IN THE EMERGENCY ROOM. OKAY TO CONTINUE HOME MEDICATIONS UNLESS OTHERWISE DISCUSSED DURING YOUR VISIT IN THE EMERGENCY ROOM TODAY. RETURN TO YOUR NEAREST EMERGENCY ROOM IF SYMPTOMS WORSEN OR IF THERE IS NO IMPROVEMENT. CALL 911 IF YOU NEED IMMEDIATE ASSISTANCE. TAKE TYLENOL OR MOTRIN OVER-THE- COUNTER NEEDED AND IF NO CONTRAINDICATIONS ARE PRESENT. INCREASE ORAL HYDRATION. A WOUND CULTURE OR URINE CULTURE WAS ORDERED HERE IN THE EMERGENCY ROOM DEPARTMENT PLEASE FOLLOW-UP WITH PRIMARY CARE PROVIDER AND ADVISE THEM TO GET REPEAT PORTS FROM OUR FACILITY. IF YOU HAD ANY LEANNE WRAP/SPLINTS THAT WERE APPLIED HERE, PLEASE DO NOT REMOVE THEM UNTIL YOU SEE YOUR PRIMARY CARE OR SPECIALTY. CONTINUE FLOMAX AT HOME. TAKE LEVAQUIN DIRECTED UNTIL GONE. FOLLOW UP WITH YOUR UROLOGIST IN THE NEXT SEVERAL DAYS. Referrals: KRISTAN PRINCE MD (PCP) Time of Disposition: 19:43 I have reviewed the case, and I agree with, Diagnosis and Plan PAPO ROMERO NP Oct 04, 2024 17:55
--- NOTE | 2024-10-04 18:52 | NUR ---
BLADDER SCAN RESULTS SHOWING MINIMAL URINE IN BLADDER 20CC. PER PATIENT LEG BAG HAD BEEN EMPTIED 4 TIMES SINCE LAST NIGHT FC INSERTION. DRAINED 85 CC AT THIS TIME URINE SENT TO LAB
[2024-10-04 19:08] LABS: APPEARANCE,URINE CLOUDY (CLEAR); BILIRUBIN,URINE NEGATIVE (NEGATIVE); COLOR,URINE YELLOW (YELLOW); GLUCOSE, URINE (UA) NEGATIVE (NEGATIVE); KETONES,URINE NEGATIVE (NEGATIVE); LEUKOCYTE ESTERASE ,URINE 500 Leu/uL (NEGATIVE); NITRATE,URINE 2+ (NEGATIVE); OCCULT BLOOD,URINE SMALL (NEGATIVE); PH,URINE 5.5 (5.0-8.0); PROTEIN,URINE 50 mg/dL (NEGATIVE); UROBILINOGEN,URINE 0.2 mg/dL (0.2-1.0)
[2024-10-04 19:09] VITALS: BP 132/62; PULSE 64; RESP 20; TEMP 98.1; O2SAT 98
[2024-10-04 19:14] LABS: ADD UA MICROSCOPIC YES
[2024-10-04 19:21] LABS: BACTERIA,URINE MANY /HPF (None Seen); MUCUS,URINE RARE LPF (None Seen); WBC CLUMP FEW /HPF (0-1); WBC,URINE 51-100 /HPF (0-1)
[2024-10-04] MEDS ORDERED: LEVO-70 PO (19:44)
== END 2024-10-04 19:52 | disposition home or self-care (01) ==
LOC: EDH 17:40
DX: N30.01 Acute cystitis with hematuria (principal); N40.0 Benign prostatic hyperplasia without lower urinary tract symptoms; Z79.899 Other long term (current) drug therapy; Z85.038 Personal history of other malignant neoplasm of large intestine; Z85.118 Personal history of other malignant neoplasm of bronchus and lung
CPT/HCPCS: 81001; 87086; 87186; 99284

== ENCOUNTER 2024-10-18 06:13 | Day surgery (SDC) | payer MEDICARE ==
[~2024-10-18] VITALS: Ht 175.3 cm; Wt 70.3 kg
[2024-10-18] VITALS (9 sets, daily range): BP systolic 101–132; BP diastolic 44–63; PULSE 52–64; RESP 13–20; TEMP 97.1–98.4
[2024-10-18] MEDS: 0.9%NACL 1000ML 1,000 ML IV ONE (07:39)
[2024-10-18] MEDS ORDERED: proPOFol 10 MG/ML 20ML VIAL IV ONE (08:10)
[2024-10-18] MEDS ORDERED: ondanSETRON 4MG INJ ONE (08:11)
[2024-10-18] MEDS ORDERED: LIDOCAINE PF 100MG/5ML (2%) SYRINGE 5ML ONE (08:11)
--- NOTE | 2024-10-18 09:46 | NUR ---
Patient aox4. Denies c/o pain or discomfort. Voiced understanding GI precautions and follow up expectations. Ambulated to bathroom with standby assist. Emptied out large amount of clear urine from leg bag. PIV discontinued with catheter tip intact. Full and complete Discharge instructions given to Patient and Daughter. All questions answered. W/C to POV with Daughter to Home.
[2024-10-18] MEDS ORDERED: AMOX1TAB16 PO (21:51)
== END 2024-10-18 09:40 | disposition home or self-care (01) ==
LOC: DAH 06:13 → ENDO 06:13
PROVIDERS: ATTEND Surgery
DX: C18.0 Malignant neoplasm of cecum (principal); D12.5 Benign neoplasm of sigmoid colon; D12.8 Benign neoplasm of rectum; K57.30 Diverticulosis of large intestine without perforation or abscess without bleeding; K21.9 Gastro-esophageal reflux disease without esophagitis; I12.9 Hypertensive chronic kidney disease with stage 1 through stage 4 chronic kidney disease, or unspecified chronic kidney disease; N18.9 Chronic kidney disease, unspecified; E78.5 Hyperlipidemia, unspecified; G47.30 Sleep apnea, unspecified; Z87.891 Personal history of nicotine dependence; Z82.49 Family history of ischemic heart disease and other diseases of the circulatory system; Z79.899 Other long term (current) drug therapy
CPT/HCPCS: 45338; 45331; 99284; 96365; 80048; 85025; 81001; 36415; J7030 ×3; J2003; J0696; J2704; J2405; A4615; A4215 ×2; A4223; A4657; A4222; A4221; A4663; A4606; J3490

== ENCOUNTER 2024-10-18 19:35 | Emergency (ER) | payer MEDICARE ==
[~2024-10-18] VITALS: Ht 175.3 cm; Wt 68.0 kg
--- NOTE | 2024-10-18 19:43 | ERN ---
ED Note History of Present Illness Stated Complaint: BLOOD IN URINARY CATHETER Chief Complaint: Urinary Catheter Problems Time Seen by MD: 19:37 Dictation: PATIENT IS AN 84-YEAR-OLD MALE COMING IN TODAY WITH COMPLAINTS OF HEMATURIA WITH PELVIC PAIN DYSURIA ONSET THIS AFTERNOON. HE DENIES FEVER CHILLS NAUSEA VOMITING. HE DOES STATE HE IS STATUS POST A COLONOSCOPY THIS MORNING BY DR. CLIVE EDWARDS WITHOUT COMPLICATIONS. HE STATES HE WAS NOT BLEEDING UNTIL AFTER HE WAS RELEASED IN WENT HOME. HE DENIES BEING ON ANY BLOOD THINNERS. DAHL CATHETER IS IN PLACE THAT IS CHRONIC, RIGHT LEG BAG. Allergies: Coded Allergies: No Known Drug Allergies (Unverified Allergy, Unknown, 02/15/17) Home Meds Reported Medications Omeprazole (Omeprazole) 20 Mg Capsule.dr, 20 MG PO HS, CAP 11/22/21 Tamsulosin HCl (Flomax) 0.4 Mg Cap.er.24h, 0.4 MG PO HS, CAPSULE.DR 11/22/21 Lisinopril (Lisinopril) 20 Mg Tablet, 20 MG PO HS, TAB 11/22/21 Dutasteride (Dutasteride) 0.5 Mg Capsule, 0.5 MG PO DAILY, CAP 11/22/21 Sennosides/Docusate Sodium (Sennosides-Docusate Sodium Tab) 1 Each Tablet, 1 EACH PO DAILY, TAB 11/22/21 Amlodipine Besylate (Amlodipine Besylate) 5 Mg Tablet, 5 MG PO DAILY, TAB 11/22/21 Metoprolol Succinate (Metoprolol Succinate) 50 Mg Tab.er.24h, 50 MG PO DAILY, TAB 11/22/21 Discontinued Scripts Levofloxacin (Levofloxacin) 500 Mg Tablet, 1 TAB PO DAILY for 10 Days, #10 TAB 0 Refills Prov:PAPO ROMERO NP 10/04/24 Past Medical History Past Medical History: Other Additional Past Medical Hx: LUNG CA, LARGE INTESTINE CA Surgical History: Other Surgical History Other: BOWEL RESECTION PSYCH History: no pertinent psych hx Social History: Negative, Lives with family RN Note Reviewed/Agreed w/PFSH: Yes Review of System Dictation CONSTITUTIONAL: NEGATIVE EXCEPT FOR HPI HEAD/FACE: NEGATIVE EXCEPT FOR HPI EENT: NEGATIVE EXCEPT FOR HPI RESPIRATORY: NEGATIVE EXCEPT FOR HPI GASTROINTESTINAL/ABDOMINAL: NEGATIVE EXCEPT FOR HPI GENITOURINARY: NEGATIVE EXCEPT FOR HPI SUPRAPUBIC PAIN WITH DYSURIA AND DAHL CATHETER AND GROSS HEMATURIA URINE HEMATURIA URINE MUSCULOSKELETAL: NEGATIVE EXCEPT FOR HPI INTEGUMENTARY: NEGATIVE EXCEPT FOR HPI NEUROLOGICAL/PSYCH: NEGATIVE EXCEPT FOR HPI HEMATOLOGIC/LYMPHATIC: NEGATIVE EXCEPT FOR HPI ALL SYSTEMS NEGATIVE, EXCEPT NOTED ABOVE. 13 POINT REVIEW OF SYSTEMS ASSESSED AND ALL NEGATIVE EXCEPT FOR ABOVE. Initial Vital Sign VS Vital Signs Date Time Temp Pulse Resp B/P (MAP) Pulse Ox O2 Delivery O2 Flow Rate FiO2 10/18/24 19:38 97.2 77 20 124/106 Room Air Physical Exam Dictation VITAL SIGNS REVIEWED GENERAL APPEARANCE: ALERT, ORIENTED X 3, MILD ACUTE DISTRESS, WELL DEVELOPED, NOURISHED. HEAD AND FACE: NON-TRAUMATIC. EYES: PERRL, PINK CONJUNCTIVAS, EYELID NO TRAUMA, ANTERIOR CHAMBER WITH ARCUS SENILIS. EARS: PINNAS INTACT AND NO SIGNS OF TRAUMA OR ERYTHEMA EAR CANALS CLEAR AND NO DISCHARGE TM NO ERYTHEMA NOSE: NO DISCHARGE, NO BLEEDING. OROPHARYNX: MOUTH NORMAL, TONGUE PINK, PHARYNX CLEAR,NO ERYTHEMA, TONSILS NO EXUDATES, NO ABSCESSES NOTED, MUCOUS MEMBRANE MOIST NECK: SUPPLE, NON-TENDER, NO THYROMEGALY, NO MASSES, NO JVD, NO BRUITS BREAST:DEFERRED CHEST:NO TENDERNESS, NO CREPITUS, NO PARADOXICAL MOVEMENT, NO RETRACTIONS LUNGS:CLEAR, WELL-VENTILATED, SYMMETRIC, NO RALES, NO WHEEZING, NO RHONCHI, NO STRIDOR, GOOD BREATH SOUNDS BILATERALLY HEART: REGULAR RATE, REGULAR RHYTHM, NO MURMUR, NO GALLOPS VASCULAR: NO PERIPHERAL EDEMA, ABDOMEN: SOFT, POSITIVE BOWEL SOUNDS, NONDISTENDED, NO GUARDING, NONTENDER, NO REBOUND, NO MASSES NO HEPATOMEGALY, NO SPLENOMEGALY, NO PHILLIP'S SIGN, NO HERNIAS. RECTAL: DEFERRED GENITAL: DEFERRED DAHL CATHETER IN PLACE TO RIGHT THIGH LEG BAG. GROSSLY HEMATURIA URINE IN BAG, URINE COLLECTED AND SENT TO LAB NEUROLOGICAL: NORMAL SPEECH, MOTOR FUNCTION INTACT, SENSORY FUNCTION INTACT MUSCULOSKELETAL: NECK NONTENDER, FULL RANGE OF MOTION, BACK NONTENDER, FULL RANGE OF MOTION, EXTREMITIES: NONTENDER, FULL RANGE OF MOTION SKIN: COLOR PINK, DRY, NO TURGOR, NO RASH, NO LACERATIONS, NO ABRASIONS, NO CONTUSIONS. LYMPHATIC: DEFERRED Results (Laboratory/Radiology) Laboratory/Radiology Laboratory Tests Test 10/18/24 19:42 10/18/24 20:02 Urine Color DARK-RED (YELLOW) Urine Appearance TURBID (CLEAR) Urine pH 5.5 (5.0-8.0) Urine Specific [place] 1.026 (1.001-1.031) Urine Protein 100 mg/dL (NEGATIVE) H Urine Glucose (UA) NEGATIVE mg/dL (NEGATIVE) Urine Ketones NEGATIVE mg/dL (NEGATIVE) Urine Occult Blood LARGE (NEGATIVE) H Urine Nitrate NEGATIVE (NEGATIVE) Urine Bilirubin NEGATIVE mg/dL (NEGATIVE) Urine Urobilinogen 0.2 mg/dL (0.2-1.0) Urine Leukocyte Esterase 25 Naila/uL (NEGATIVE) H Urine RBC TNTC /HPF (0-1) H Urine WBC 0-1 /HPF (0-1) Urine Squamous Epithelial Cells None Seen /HPF (0-2) Urine Bacteria Few /HPF (None Seen) White Blood Count 7.7 K/uL (4.8-10.8) Red Blood Count 3.58 MIL/uL (4.50-6.20) L Hemoglobin 11.9 g/dL (14.0-18.0) L Hematocrit 35.8 % (42-54) L Mean Corpuscular Volume 100.0 fL (79-99) H Mean Corpuscular Hemoglobin 33.2 pg (27.0-33.0) H Mean Corpuscular Hemoglobin Concent 33.2 g/dL (32.0-36.0) Red Cell Distribution Width 13.3 % (11.0-15.5) Platelet Count 207 K/uL (130-400) Mean Platelet Volume 9.7 fL (7.5-10.5) Immature Granulocyte % (Auto) 0.5 % (0-1) Neutrophils (%) (Auto) 75.7 % (40.0-77.0) Lymphocytes (%) (Auto) 11.0 % (21.0-51.0) L Monocytes (%) (Auto) 11.5 % (3.0-13.0) Eosinophils (%) (Auto) 1.0 % (0.0-8.0) Basophils (%) (Auto) 0.3 % (0.0-5.0) Neutrophils # (Auto) 5.8 K/uL (1.8-7.7) Lymphocytes # (Auto) 0.8 K/uL (1.0-4.8) L Monocytes # (Auto) 0.9 K/uL (0.1-1.0) Eosinophils # (Auto) 0.08 K/uL (0.00-0.70) Basophils # (Auto) 0.02 K/uL (0.00-0.20) Absolute Immature Granulocyte (auto 0.04 K/uL (0-1) Nucleated Red Blood Cells 0.0 % (0.0-0.19) Sodium Level 141 mmol/L (136-145) Potassium Level 3.9 mmol/L (3.5-5.1) Chloride Level 106 mmol/L (101-111) Carbon Dioxide Level 30 mmol/L (21-32) Blood Urea Nitrogen 32 mg/dL (7-18) H Creatinine 1.4 mg/dL (0.5-1.3) H Glomerular Filtration Rate Calc 49 mL/min (>90) Random Glucose 103 mg/dL (70-105) Total Calcium 8.6 mg/dL (8.5-10.1) Labs Reviewed?: Yes ED Course ED Course Orders Procedure Category Date Status Time Cbc With Differential LAB 10/18/24 Complete 19:40 Urinalysis Profile LAB 10/18/24 Complete 19:40 Basic Metabolic Panel LAB 10/18/24 Complete 19:40 Acetaminophen 500mg PHA 10/18/24 Complete Tab (Tylenol 500mg T 20:00 Phenazopyridine Hcl PHA 10/18/24 Complete 200 Mg Tab (Pyridium 20:00 0.9%Nacl 1000ml (Ns PHA 10/18/24 Complete 1000ml) 21:00 Ceftriaxone 1g Vial PHA 10/18/24 Complete (Rocephine 1g Inj) 21:00 Current Medications Medications (Trade) Dose Ordered Sig/Yareli Route PRN Reason Start Time Stop Time Status Last Admin Dose Admin Acetaminophen (TYLenol 500MG TAB) 1,000 mg ONCE ONCE PO 10/18/24 20:00 10/18/24 20:01 DC 10/18/24 20:39 Ceftriaxone Sodium (ROCEphine 1G INJ) 1 gm ONCE ONCE IVPB 10/18/24 21:00 10/18/24 21:01 DC 10/18/24 21:11 Phenazopyridine HCl (PYRIdium HCL 200 MG TAB) 200 mg ONCE ONCE PO 10/18/24 20:00 10/18/24 20:01 DC 10/18/24 20:39 Sodium Chloride 1,000 ml @ 0 mls/hr ONCE ONCE IV 10/18/24 21:00 10/18/24 21:01 DC 10/18/24 21:11 Vital Signs Date Time Temp Pulse Resp B/P (MAP) Pulse Ox O2 Delivery O2 Flow Rate FiO2 10/18/24 20:39 98.8 10/18/24 19:38 97.2 77 20 124/106 Room Air 2150 PATIENT STATES PAIN IS MARKEDLY REDUCED AFTER TREATMENT WITH FLUIDS AND ROCEPHIN. DISCHARGED HOME WITH DIAGNOSIS OF ACUTE CYSTITIS WITH HEMATURIA ON AUGMENTIN AND TOLDASA TO CONTINUE WITHS HISE FOLLOW UP WITH IN THE NEXT FEW DAYS. Medical Decision Making MDM MDM: DIFFERENTIAL DIAGNOSIS: HEMATURIA/UTI/CYSTITIS/COAGULOPATHY/SEPSIS/ELECTROLYTE IMBALANCE RATIONALE: TESTS CONSIDERED AND ORDERED SECONDARY TO SHARED DECISION MAKING INCLUDE: LABS PREVIOUS OUTSIDE RECORDS REVIEWED: OLD ER VISITS. REVIEWED RISK OF COMPLICATION AND/OR MORBIDITY OR MORTALITY OF PATIENT MANAGEMENT: NONE MEDICATIONS-PER MEDICATION RECONCILIATION NEED FOR HOSPITALIZATION: PATIENT DOES NOT MEET CRITERIA FOR HOSPITALIZATION. NO NEED FOR EMERGENCY MAJOR/MINOR SURGERY: NO THERE ARE NO SOCIAL CONCERNS WITH THIS PATIENT. PRESCRIPTION DRUG MANAGEMENT AUGMENTIN PRESCRIPTIONS WILL INCLUDE SYMPTOMATIC CARE PATIENT'S PRIOR EXTERNAL MEDICAL RECORDS FROM OTHER ER VISITS WERE REVIEWED BY ME INDICATED. PRIOR TESTING AND RESULTS FROM PREVIOUS VISITS WERE REVIEWED. PRIOR TESTS WERE TAKEN INTO ACCOUNT WITH MEDICAL DECISION MAKING AND RESOURCE UTILIZATION, INDEPENDENT HISTORIAN/HISTORIANS WERE USED TO OBTAIN COMPLETE MEDICAL HISTORY. I INDEPENDENTLY INTERPRETED THE TEST THAT WERE PERFORMED, RESULTS WERE REVIEWED BY ME AND CONSIDERED FINDINGS ON RADIOLOGY IF ORDERED. MEDICAL MANAGEMENT AND EXAMINATION INTERPRETATION DISCUSSIONS WERE HAD BY ME WITH OTHER QUALIFIED HEALTHCARE PROFESSIONALS INDICATED FOR THE PATIENT'S CARE. DX & DISP Disposition: Discharge Departure Impression: Primary Impression: Acute cystitis with hematuria Additional Impression: Chronic kidney disease Condition: Stable Scripts Amoxicillin/Potassium Clav (Amox Tr-K Clv 875-125 mg Tab) 875 Mg-125 Mg Tablet 1 EACH PO BID for 7 Days, #14 TAB 0 Refills Prov: PAPO ROMERO NP 10/18/24 Referrals: KRISTAN PRINCE MD (PCP) Time of Disposition: 21:49 I have reviewed the case, and I agree with, Diagnosis and Plan PAPO ROMERO NP Oct 18, 2024 19:43
[2024-10-18 19:52] LABS: ADD UA MICROSCOPIC YES; APPEARANCE,URINE TURBID (CLEAR); BILIRUBIN,URINE NEGATIVE (NEGATIVE); COLOR,URINE DARK-RED (YELLOW); GLUCOSE, URINE (UA) NEGATIVE (NEGATIVE); KETONES,URINE NEGATIVE (NEGATIVE); LEUKOCYTE ESTERASE ,URINE 25 Leu/uL (NEGATIVE); NITRATE,URINE NEGATIVE (NEGATIVE); OCCULT BLOOD,URINE LARGE (NEGATIVE); PH,URINE 5.5 (5.0-8.0); PROTEIN,URINE 100 mg/dL (NEGATIVE); UROBILINOGEN,URINE 0.2 mg/dL (0.2-1.0)
[2024-10-18 19:58] LABS: RBC,URINE TNTC /HPF (0-1); SQUAMOUS EPITHELIAL CELL,UR None Seen /HPF (0-2); WBC,URINE 0-1 /HPF (0-1)
[2024-10-18 19:59] LABS: BACTERIA,URINE Few /HPF (None Seen)
[2024-10-18 20:00] VITALS: TEMP 97.8
[2024-10-18 20:21] LABS: BASOPHILS # (AUTO) 0.02 K/uL (0.00-0.20); BASOPHILS % (AUTO) 0.3 % (0.0-5.0); EOSINOPHILS # (AUTO) 0.08 K/uL (0.00-0.70); HEMATOCRIT 35.8 % (42-54); IMMATURE GRANULOCYTE ABSOLUTE 0.04 K/uL (0-1); LYMPHOCYTES # (AUTO) 0.8 K/uL (1.0-4.8); MEAN CORPUSCULAR HEMOGLOBIN 33.2 pg (27.0-33.0); MEAN CORPUSCULAR HGB CONC 33.2 g/dL (32.0-36.0); MONOCYTES # (AUTO) 0.9 K/uL (0.1-1.0); MONOCYTES % (AUTO) 11.5 % (3.0-13.0); NEUTROPHILS # (AUTO) 5.8 K/uL (1.8-7.7); NEUTROPHILS % (AUTO) 75.7 % (40.0-77.0); PLATELET COUNT (AUTO) 207 K/uL (130-400); RED BLOOD CELL COUNT(AUTO) 3.58 MIL/uL (4.50-6.20); RED CELL DISTRIBUTION WIDTH 13.3 % (11.0-15.5); WHITE BLOOD COUNT (AUTO) 7.7 K/uL (4.8-10.8)
[2024-10-18 20:30] LABS: CREATININE 1.4 mg/dL (0.5-1.3); POTASSIUM 3.9 mmol/L (3.5-5.1)
[2024-10-18 20:39] VITALS: TEMP 98.8
[2024-10-18] MEDS: acetaMINOPHEN 500 MG TABLET PO ONE (20:39)
[2024-10-18] MEDS: PHENAZOpyridine HCL 200 MG TAB 200 MG TABLET PO ONE (20:39)
[2024-10-18] MEDS: cefTRIAXone 1G VIAL IVPB ONE (21:11)
[2024-10-18] MEDS: 0.9%NACL 1000ML 1,000 ML IV ONE (21:11)
[2024-10-18] MEDS ORDERED: AMOX1TAB16 PO (21:51)
[2024-10-18 22:13] VITALS: BP 147/57; PULSE 64; RESP 18; O2SAT 95
== END 2024-10-18 22:35 | disposition home or self-care (01) ==
LOC: EDH 19:35
DX: N30.01 Acute cystitis with hematuria (principal); N18.9 Chronic kidney disease, unspecified; Z79.899 Other long term (current) drug therapy
CPT/HCPCS: 99284; 96365; 80048; 85025; 81001; 36415; J7030; J0696

== ENCOUNTER 2024-11-04 06:36 | Emergency (ER) | payer MEDICARE ==
[~2024-11-04] VITALS: Ht 175.3 cm; Wt 70.3 kg
[~2024-11-04 06:36] MED LIST changes: +AMOX1TAB16 PO
--- NOTE | 2024-11-04 07:31 | ERN ---
General Chief Complaint: Other Problems Stated Complaint: WANTS ANTIBIOTICS Time Seen by MD: 07:12 History of Present Illness Initial Comments 84M, hx BPH requiring hernandez, presents for concern for UTI. Patient reports that he feels pain in his groin and leg when he gets UTIs. He felt these symptoms this morning, and reports recent occasional cloudiness and pink tinge to his urine. No fevers, suprapubic pain, dysuria, blood clotting, flank pain, fevers, n/v, or other symptoms. Patient has f/u w/ Dr Beal (urology) next week. Allergies: Coded Allergies: No Known Drug Allergies (Unverified Allergy, Unknown, 02/15/17) Home Meds Active Scripts Cefpodoxime Proxetil (Cefpodoxime Proxetil) 200 Mg Tablet, 200 MG PO BID for 10 Days, #20 TAB Prov:BEA ALEXANDER DO 11/04/24 Amoxicillin/Potassium Clav (Amox Tr-K Clv 875-125 mg Tab) 875 Mg-125 Mg Tablet, 1 EACH PO BID for 7 Days, #14 TAB 0 Refills Prov:PAPO ROMERO TUMBLERS SUPERVISOR 10/18/24 Reported Medications Omeprazole (Omeprazole) 20 Mg Capsule.dr, 20 MG PO HS, CAP 11/22/21 Tamsulosin HCl (Flomax) 0.4 Mg Cap.er.24h, 0.4 MG PO HS, CAPSULE. 11/22/21 Lisinopril (Lisinopril) 20 Mg Tablet, 20 MG PO HS, TAB 11/22/21 Dutasteride (Dutasteride) 0.5 Mg Capsule, 0.5 MG PO DAILY, CAP 11/22/21 Sennosides/Docusate Sodium (Sennosides-Docusate Sodium Tab) 1 Each Tablet, 1 EACH PO DAILY, TAB 11/22/21 Amlodipine Besylate (Amlodipine Besylate) 5 Mg Tablet, 5 MG PO DAILY, TAB 11/22/21 Metoprolol Succinate (Metoprolol Succinate) 50 Mg Tab.er.24h, 50 MG PO DAILY, TAB 11/22/21 Past Medical History Past Medical History: CAD, Hypertension, Kidney Stone, UTI Medical History Other: LUNG CA, LARGE INTESTINE CA, MALIGNANT NEOPLASM OF CECUM Past Surgical History: Other Surgical History Other: BOWEL RESECTION Social History Social History: Negative, Lives with family ROS Dictation CONSTITUTIONAL: No chills, no fever, no weakness, no diaphoresis, no malaise. HEAD/FACE: No signs of trauma. EENT: No eye pain, no blurred vision, no tearing, no double vision, no ear pain, no ear discharge, no nose pain, no nasal congestion, no throat pain, no throat swelling, no mouth pain. RESPIRATORY: No cough, no orthopnea, no SOB, no stridor, no wheezing. CARDIOVASCULAR: No chest pain, no edema, no palpitations, no syncope. GASTROINTESTINAL/ABDOMINAL: No abdominal pain, no constipation, no diarrhea, no nausea, no vomiting. GENITOURINARY: No abnormal discharge, no dysuria, no frequent urination, no hematuria. No complaints of pain in the genitals. MUSCULOSKELETAL: No back pain, no gout, no joint pain, no joint swelling, no muscle pain, no muscle stiffness, no neck pain. INTEGUMENTARY: No change in color, no change in hair/nails, no dryness, no lesion, no lumps, no rash. NEUROLOGICAL/PSYCH: No anxiety, not depressed, no emotional problem, no headache, no numbness, no pre-existing deficit, no history of seizures, no tremors, no weakness. HEMATOLOGIC/LYMPHATIC: Not anemic, no history of blood clots, no apparent blee ding, no bruising, glands not swollen. All Systems Negative, Except as Noted. Physical Exam Physical Exam Dictation VITAL SIGNS: Reviewed. GENERAL APPEARANCE: Alert, oriented x3, no acute distress HEAD AND FACE: Non-traumatic. EYES: PERRL, pink conjunctivas, eyelid no trauma, anterior chamber clear. EARS: Pinnas intact and no signs of trauma or erythema. Ear canals clear and no discharge. TMs no erythema. NOSE: No discharge, no bleeding. OROPHARYNX: Mouth normal, teeth no caries, tongue pink. Pharynx clear, no erythema. Tonsils no exudates, no abscesses noted. Mucous membrane moist. NECK: Supple, non-tender, no thyromegaly, no masses, no JVD, no bruits. BREAST: Deferred. CHEST: No tenderness, no crepitus, no paradoxical movement, no retractions. LUNGS: Clear, well-ventilated, symmetric, no rales, no wheezing, no rhonchi, no stridor, good breath sounds bilaterally. HEART: Regular rate, regular rhythm, no murmur, no gallops. VASCULAR: No peripheral edema. ABDOMEN: Soft, positive bowel sounds, nondistended, no guarding, nontender, no rebound, no masses no hepatomegaly, no splenomegaly, no Headley's sign, no hernias. RECTAL: Deferred. GENITAL: Hernandez intact NEUROLOGICAL: Normal speech, gross motor function intact, gross sensory function intact. MUSCULOSKELETAL: Neck nontender, full range of motion, back nontender, full range of motion. EXTREMITIES: Nontender, full range of motion. SKIN: Color pink, dry, no turgor, no rash, no lacerations, no abrasions, no contusions. LYMPHATICS: Deferred. MDM CC: concern for UTI Historian: patient Comorbidities: advanced age, CAD, HTN, UTIs, chronic hernandez due to BPH, hx of lung CA, hx of large intestinal CA Limitations: none Ddx: hernandez complication, UTI, pyelonephritis, sepsis VS: stable, remained stable Exam: unremarkable. non-toxic. UA: blood, consistent with infection Hernandez exchanged in ED. Some hematuria, no clots. Plan: will DC with antibiotics, cefpodoxime. Patient to f/u w/ Dr Beal this upcoming week, already has appointment scheduled. ED Course Orders Procedure Category Date Status Time Urinalysis LAB 11/04/24 In Process W/Microscopic 07:48 Vital Signs Date Time Temp Pulse Resp B/P (MAP) Pulse Ox O2 Delivery O2 Flow Rate FiO2 11/04/24 08:10 98.1 96 17 181/72 96 Room Air* 0 21 11/04/24 06:38 97.7 96 17 155/77 96 Room Air 0 11/04/24 06:37 97.7 55 17 155/77 96 Room Air* 0 21 DX & DISP Disposition: Discharge Departure Impression: Primary Impression: Acute cystitis with hematuria Additional Impression: Hernandez catheter in place Condition: Stable Scripts Cefpodoxime Proxetil (Cefpodoxime Proxetil) 200 Mg Tablet 200 MG PO BID for 10 Days, #20 TAB Prov: BEA ALEXANDER DO 11/04/24 Additional Instructions: There were signs of a urinary infection in your urinalysis. I've prescribed cefpodoxime, which is an antibiotic. Please take as prescribed. Your hernandez catheter was replaced here in the ED today. Please follow up with Dr Beal next week as scheduled. Bring the antibiotics with you to your appointment. Return to the emergency department as needed. Referrals: CECILLE NO MD (PCP) BEA ALEXANDER DO Nov 04, 2024 07:31
[2024-11-04] MEDS ORDERED: CEFP200T14 PO (07:35)
--- NOTE | 2024-11-04 07:45 | NUR ---
ORDER GIVEN BY MD CATHERINE FOR DAHL CHANGE AND SPECIMEN COLLECTION
[2024-11-04 08:10] VITALS: TEMP 98
[2024-11-04 09:01] LABS: APPEARANCE,URINE CLOUDY (CLEAR); BILIRUBIN,URINE NEGATIVE (NEGATIVE); COLOR,URINE RED (YELLOW); GLUCOSE, URINE (UA) 100 mg/dL (NEGATIVE); KETONES,URINE 15 mg/dL (NEGATIVE); LEUKOCYTE ESTERASE ,URINE MODERATE Leu/uL (NEGATIVE); NITRATE,URINE POSITIVE (NEGATIVE); OCCULT BLOOD,URINE LARGE (NEGATIVE); PROTEIN,URINE >=300 mg/dL (NEGATIVE)
[2024-11-04 09:37] LABS: RBC,URINE TNTC /HPF (0-1)
[2024-11-04 09:41] LABS: BACTERIA,URINE Few /HPF (None Seen)
[2024-11-04 10:07] VITALS: BP 168/72; PULSE 50; RESP 17; O2SAT 98
== END 2024-11-04 10:10 | disposition home or self-care (01) ==
LOC: EDH 06:36
DX: N30.01 Acute cystitis with hematuria (principal); I10 Essential (primary) hypertension; I25.10 Atherosclerotic heart disease of native coronary artery without angina pectoris; Z79.899 Other long term (current) drug therapy
CPT/HCPCS: 51702; 81001; 87086; 99284

== ENCOUNTER → 2025-07-03 | Outpatient (CLI) | payer MEDICARE ==
[~2025-07-03] VITALS: Ht 175.3 cm; Wt 64.0 kg
[~2025-07-03] MED LIST changes: +ATOR-2 PO; +CEFP200T14 PO; +DOCU100C33 PO; +LISI40TA15 PO; +METO50TA18 PO; -TAMS-1 PO; +TAMS-55 PO; +vitamin b12 PO
[2025-07-03 11:30] LABS: IMMATURE GRANULOCYTE ABSOLUTE 0.05 K/uL (0-1); NUCLEATED RED BLOOD CELLS 0.0 % (0.0-0.19); PLATELET COUNT (AUTO) 198 K/uL (130-400); RED BLOOD CELL COUNT(AUTO) 3.90 MIL/uL (4.50-6.20); RED CELL DISTRIBUTION WIDTH 14.3 % (11.0-15.5); WHITE BLOOD COUNT (AUTO) 5.8 K/uL (4.8-10.8)
[2025-07-03 11:33] VITALS: BP 139/58; PULSE 53; RESP 18; TEMP 98.3
[2025-07-03 11:38] LABS: CREATININE 1.1 mg/dL (0.5-1.3); GLOMERULAR FILTR. RATE CALC 65.0 mL/min (>90); GLUCOSE,RANDOM 159.0 mg/dL (70-105); SODIUM SERUM 139.0 mmol/L (136-145); UREA NITROGEN, BLOOD 24.0 mg/dL (7-18)
[2025-07-03 12:10] LABS: INR 1.0 (0.85-1.15)
--- NOTE | 2025-07-03 12:12 | NUR ---
PREOP CLARY RT INSTRUCTED PT ON INCENTIVE SPIROMETRY
--- NOTE | 2025-07-03 16:27 | NUR ---
cancellation received call from anahy with dr kaminski. would like to cancel procedure for now d/t cardiac clearance being high risk.
== END | disposition home or self-care (01) ==
LOC: DAH 10:47 → EDSTATUS 07-04 14:35
PROVIDERS: ATTEND Student in an Organized Health Care Education/Training Program
DX: Z01.818 Encounter for other preprocedural examination (principal); M25.552 Pain in left hip; M16.12 Unilateral primary osteoarthritis, left hip; I10 Essential (primary) hypertension; I25.10 Atherosclerotic heart disease of native coronary artery without angina pectoris; E78.5 Hyperlipidemia, unspecified; G89.29 Other chronic pain; Z85.46 Personal history of malignant neoplasm of prostate; Z79.01 Long term (current) use of anticoagulants; Z79.899 Other long term (current) drug therapy; Z53.8 Procedure and treatment not carried out for other reasons
CPT/HCPCS: 36415; 80048; 82040; 84134; 85025; 85610; 85730; 86140; 86850; 86900; 86901; 87641

== ENCOUNTER 2025-07-18 05:59 | Observation (INO) | payer MEDICARE ==
--- NOTE | 2025-07-17 16:49 | NUR ---
preop incentive spirometry done on preop dated 07/03/25. knee assessment was also done on that visit.
--- NOTE | 2025-07-17 16:52 | NUR ---
confirmed called dr kaminski to see if she wanted type and screen in am. received orders for type and screen
[2025-07-18] VITALS (29 sets, daily range): BP systolic 130–160; BP diastolic 51–88; PULSE 48–77; RESP 14–20; TEMP 97.1–98.1; O2SAT 95–97
[~2025-07-18] VITALS: Ht 175.3 cm; Wt 64.3 kg
[~2025-07-18 05:59] MED LIST changes: -AMOX1TAB16 PO; -CEFP200T14 PO; -DUTA0.5C37 PO; -LISI20TA24 PO; -METO-391 PO; -SENN-31 PO; -TAMS-55 PO
[2025-07-18] MEDS: LACTATED RINGERS 1000ML 1,000 ML IV ONE (07:53)
[2025-07-18] MEDS ORDERED: TRANEXAMIC ACID 1000MG/10ML ONE ×2 (08:14)
[2025-07-18] MEDS ORDERED: LIDOCAINE PF 100MG/5ML (2%) SYRINGE 5ML ONE (08:47)
[2025-07-18] MEDS ORDERED: SUCCINYLCHOLINE CHLORIDE 20 MG/ML 10 ML VIAL ONE (08:48)
[2025-07-18] MEDS: TRANEXAMIC ACID 1000MG/10ML IV ONE (11:14)
[2025-07-18] MEDS ORDERED: NEOSTIGMINE METHYLSULFATE 1MG/ML IV ONE (11:40)
[2025-07-18] MEDS ORDERED: GLYCOPYRROLATE 0.2 MG/ML 5 ML VIAL ONE (11:40)
--- NOTE | 2025-07-18 11:42 | OP ---
Operative Note: DATE OF PROCEDURE: 07/18/25 SURGEON: SARINA HESTER MD POOL TABLE MECHANIC: Jaren Gaitan ANESTHESIA: General and fascia iliaca block ANESTHESIOLOGIST/MEDIA OPERATOR: Uvaldo Peng CRNA PREOPERATIVE DIAGNOSIS: Left hip osteoarthritis POSTOPERATIVE DIAGNOSIS: Left hip osteoarthritis PROCEDURE: Left total hip arthroplasty ESTIMATED BLOOD LOSS: 150 cc INDICATIONS: 85-year-old male with left hip osteoarthritis failing conservative management. After discussion of the risks, benefits, and alternatives, the patient voluntarily agreed to undergo the aforementioned procedure. IMPLANTS: [employer]hew 56 mm R3 acetabular component with 6.5 mm screws x2 and central hole cover, 0 degree XLPE polyethylene liner, size three standard offset anthology stem with a 40 mm Oxinium +0 head DESCRIPTION OF PROCEDURE: Patient was properly identified in the preoperative holding area. Surgical site marking was verified and surgery consent reviewed. The patient was then taken to the operating room and placed in supine position on the OR table. After induction of general anesthesia, preoperative antibiotics were given. The patient was then transitioned in the lateral decubitus position with the left side up. All bony prominences were well-padded. Left lower extremity was then prepped and draped in the usual sterile fashion. Surgical time out was done verifying correct surgery, side, site, and location to be performed. We then began the procedure by making approximately 15 cm long incision centered over the greater trochanter. Here we came sharply through skin down to the fascia. Hemostasis was then achieved using Bovie electrocautery. We then incised fascia in line with the skin incision and finger split the tensor muscle proximally. We then placed our Charnley retractor. At this point we identified the vastus ridge and began elevating the full-thickness soft tissue flap off of the vastus ridge, splitting the vastus lateralis and gluteus muscles as necessary. We then proceeded to externally rotate the femur while making this flap. We resected part of the anterior capsule. The femoral head and neck was then delivered into view. We then dislocated the hip and performed a femoral neck osteotomy approximately half fingerbreadth proximal to the lesser trochanter. We then placed our retractors around the superior and anterior portion of the acetabulum and began to remove the labrum circumferentially. We then began reaming the acetabulum where we reamed up to a size 55 ensuring appropriate anteversion and abduction. We then proceeded to trial with the size 55 acetabular component and this appeared to sit well. We opened our size 56 acetabular component and after irrigating out the wound malleted this into place. It appeared to have good press-fit however we elected to place 6.5 mm screws as well. We drilled and filled the screws in standard fashion in the posterior superior portion of the cup. We then placed the manhole cover on the center of the cup. The wound was thoroughly irrigated out further and we placed the acetabular liner and impacted this in place in standard fashion. We then proceeded to reposition our retractors to elevate the proximal femur out of the wound. We then used the box chisel and canal finder to began preparing the femoral side and sequentially broached up to the aforementioned size stem. Once we felt we had good fit, fill, and control of the femur with the stem in place we then used our trial head component and reduce the hip. Upon reduction, we had appropriate soft tissue tensioning, limb length and stable range of motion. We therefore dislocated the hip once more removed our trial components thoroughly irrigated the out the wound and placed our final components in standard fashion. The hip was then reduced with the final components in place. It was found to be stable through range of motion with appropriate soft tissue tensioning and appropriate limb length. At this point we placed a bump under the knee and the foot on the male with a stack of towels to allow for internal rotation. We repaired the abductors back to the greater trochanter using #5 Ethibond. We then repaired the rent in the vastus lateralis and gluteus muscles using #1 Vicryl in a running fashion. We removed our Charnley retractor and began to repair the IT band using #1 Vicryl in interrupted [id number] fashion. At this point we began to close her subcutaneous tissue using 2-0 Vicryl. Running 3-0 Monocryl in subcuticular fashion with Dermabond placed over this for the skin. Island barrier dressing was then applied. Patient was returned to supine position, awakened from anest hesia, and taken to the recovery room in stable condition. SARINA HESTER MD Jul 18, 2025 11:41
[2025-07-18] MEDS ORDERED: CALCIUM CARB 500MG PO PRN (12:00)
[2025-07-18] MEDS ORDERED: PoTASSium chloRIDE 20MEQ ER 20 MEQ ERTAB PO PRN (12:00)
[2025-07-18] MEDS ORDERED: FERROUS FUMARATE 324 MG TABLET PO PRN (12:00)
[2025-07-18] MEDS ORDERED: HYDROcodone/APAP 5/325 1 TAB TABLET PO PRN ×2 (12:00)
[2025-07-18] MEDS ORDERED: PoTASSium chl 10% ELIXIR 20MEQ 20 MEQ/15 ML UDCUP PO PRN (12:00)
[2025-07-18] MEDS ORDERED: CYCLOBENZAPRINE HCL 10 MG TABLET PO PRN (12:00)
--- NOTE | 2025-07-18 13:49 | HMCIMG ---
EXAM: CR left Hip, 2 View. CLINICAL HISTORY: S/P HIP SURGERY; COMPARING RT vs LT COMPARISON: None provided. FINDINGS: Left total hip arthroplasty is in near anatomic alignment with no periprosthetic fracture appreciated. There are appropriate postsurgical changes overlying the left hip joint. Incidental atherosclerotic vascular calcifications. Incidental calcified pelvic phleboliths. IMPRESSION: 1. Left total hip arthroplasty in near anatomic alignment without periprosthetic fracture. /[place]
--- NOTE | 2025-07-18 14:30 | NUR ---
RECEIVED FROM PACU STATUS POST PO VIA DR MIR ROSE IV IN TACT IVF PATENT LEFT HIP DRESSING CDI AWAKE ALERT AOX 3 VERBALLY RESPONSIVE DENTIES PAIN STABLE COND
--- NOTE | 2025-07-18 15:11 | DS ---
Discharge Summary Hospital Course Summary: The patient was admitted to the hospital postoperatively on 07/18/2025 after undergoing left total hip arthroplasty. They did well with routine postoperative pain control. They worked well with physical therapy. They developed some acute blood loss anemia but remained asymptomatic. The hospital course was otherwise uncomplicated. They were subsequently able to be discharged on postoperative day 2 once discharge arrangements were made with SNF. Civil Engineering Project Manager(s): None Procedure(s): Left total hip arthroplasty, 07/18/2025 Assessment/Plan: ASSESSMENT: Status post left total hip arthroplasty Acute blood loss anemia PLAN: See discharge instructions Discharge Instructions: Begin working with home health physical therapy. Remembered do not flex the hip more than 90 and do not cross midline at the knees or ankles for the 1st six weeks. If you are side sleeper place a pillow between the knees and ankles to prevent the legs from crossing. Dressing may be removed 07/20/2025 and left open to air. Showers ok allowing soap and water to run over the wound. Pat dry. Do not submerge wound in tub/pool. Do not apply ointments. Do not apply Betadine. Do not apply peroxide. Ice packs to decrease pain/swelling. Prescriptions have been sent to the pharmacy: *Hasty 5/325mg 1-2 tab every 6 hours as needed for severe pain. (please call for refills) Cyclobenzaprine 5mg 1 tab every 8 hours as needed for muscle spasm pain. Gabapentin 100mg 1 tab every 8 hours (may discontinue if drowsy). Colace 100mg 1 tab orally twice a day as needed for constipation. Aspirin 325mg for 30 days to prevent blood clots. Follow up at [facility] on August 09 at 2:00 p.m. Home Medications: Active Scripts Hydrocodone/Acetaminophen (Hydrocodon-Acetaminophen 5-325) 5 Mg-325 Mg Tablet, 1-2 TAB PO Q6HPRN PRN for MODERATE PAIN (4-6), #56 TAB 0 Refills Prov:SARINA HESTER MD 07/20/25 Reported Medications Docusate Sodium (Docusate Sodium) 100 Mg Capsule, 100 MG PO DAILY, CAP 07/03/25 Atorvastatin Calcium (Atorvastatin Calcium) 80 Mg Tablet, 80 MG PO HS, TAB 07/03/25 Lisinopril (Lisinopril) 40 Mg Tablet, 40 MG PO AM, TAB 07/03/25 Metoprolol Tartrate (Metoprolol Tartrate) 50 Mg Tablet, 25 MG PO BID, TAB 07/03/25 [vitamin b12] No Conflict Check, 1000 MCG PO QODAY 07/03/25 Omeprazole (Omeprazole) 20 Mg Capsule.dr, 20 MG PO HS, CAP 11/22/21 Amlodipine Besylate (Amlodipine Besylate) 5 Mg Tablet, 5 MG PO DAILY, TAB 11/22/21 SARINA HESTER MD Jul 18, 2025 15:11
[2025-07-18] MEDS: HYDROcodone/APAP 5/325 1 TAB TABLET PO PRN (17:19)
[2025-07-18] MEDS: 0.9%NACL 1000ML 1,000 ML IV SCH (22:00)
[2025-07-19] VITALS (7 sets, daily range): BP systolic 131–151; BP diastolic 54–93; PULSE 53–68; RESP 16–18; TEMP 97.6–98.5; O2SAT 98
[2025-07-19 04:34] LABS: NUCLEATED RED BLOOD CELLS 0.0 % (0.0-0.19); PLATELET COUNT (AUTO) 189.0 K/uL (130-400); RED BLOOD CELL COUNT(AUTO) 3.32 MIL/uL (4.50-6.20); RED CELL DISTRIBUTION WIDTH 14.0 % (11.0-15.5); WHITE BLOOD COUNT (AUTO) 10.1 K/uL (4.8-10.8)
[2025-07-19 04:49] LABS: CREATININE 1.3 mg/dL (0.5-1.3); GLOMERULAR FILTR. RATE CALC 54.0 mL/min (>90); GLUCOSE,RANDOM 126.0 mg/dL (70-105); SODIUM SERUM 137.0 mmol/L (136-145); UREA NITROGEN, BLOOD 28.0 mg/dL (7-18)
--- NOTE | 2025-07-19 08:02 | PN ---
Ortho postop day one. This morning patient is awake alert and oriented. He is out of bed enjoying his breakfast. Reporting adequate pain control. No acute distress. Vital signs have been stable. Afebrile. Laboratory results reviewed. Noted to have a drop in hemoglobin and hematocrit as expected after total hip arthroplasty. Patient is currently asymptomatic. We will continue to observe and treat as necessary per protocol. Operative findings discussed with the patient. Reinforced incentive spirometry. Dressing is intact. Distal neurovascular exam intact. Gastrocnemius soft nontender. Negative Homans. No gross leg length discrepancy appreciated today. Currently has bilateral SCD stockings present and on. Reinforced ice throughout the day. Ambulated yesterday about 20 ft with physical therapy. Pending further physical therapy this morning. Anticipated discharge goal for patient is home with a home health. Assessment: Status post left total hip arthroplasty. Acute postoperative blood loss anemia. Plan: Continue with Dr. Vega's total hip arthroplasty protocol and discharge planning. Acute postoperative blood loss anemia addressed per protocol as necessary Vitals/Labs Vital Signs Date Time Temp Pulse Resp B/P (MAP) Pulse Ox O2 Delivery O2 Flow Rate FiO2 07/19/25 04:00 98.4 57 18 151/59 96 Room Air 07/18/25 20:00 0 21 Laboratory Tests 07/19/25 04:03 Medications Current Medications Cefazolin Sodium 2 gm STK-MED ONCE .ROUTE; Start 07/18/25 at 07:15; Stop 07/18/25 at 07:16; Status DC Lactated Ringer's 1,000 ml @ As Directed STK-MED ONCE IV Last administered on 07/18/25at 07:53; Start 07/18/25 at 07:15; Stop 07/18/25 at 07:16; Status DC Tranexamic Acid 1,000 mg STK-MED ONCE .ROUTE; Start 07/18/25 at 08:14; Stop 07/18/25 at 08:14; Status DC Tranexamic Acid 1,000 mg STK-MED ONCE .ROUTE; Start 07/18/25 at 08:14; Stop 07/18/25 at 08:14; Status DC Lidocaine HCl 100 mg STK-MED ONCE .ROUTE; Start 07/18/25 at 08:47; Stop 07/18/25 at 08:48; Status DC Succinylcholine Chloride 200 mg STK-MED ONCE .ROUTE; Start 07/18/25 at 08:48; Stop 07/18/25 at 08:48; Status DC Propofol 200 mg STK-MED ONCE IV; Start 07/18/25 at 08:48; Stop 07/18/25 at 08:48; Status DC Ketamine HCl 50 mg STK-MED ONCE .ROUTE; Start 07/18/25 at 08:48; Stop 07/18/25 at 08:48; Status DC Rocuronium Nettie 50 mg STK-MED ONCE .ROUTE; Start 07/18/25 at 08:48; Stop 07/18/25 at 08:48; Status DC Phenylephrine HCl 10 mg STK-MED ONCE IV; Start 07/18/25 at 09:18; Stop 07/18/25 at 09:18; Status DC Cefazolin Sodium 2 gm STK-MED ONCE IVPB Last administered on 07/18/25at 09:25; Start 07/18/25 at 09:25; Stop 07/18/25 at 09:55; Status DC Tranexamic Acid 1,000 mg STK-MED ONCE IV Last administered on 07/18/25at 09:36; Start 07/18/25 at 09:36; Stop 07/18/25 at 09:55; Status DC Ropivacaine 150 mg STK-MED ONCE .ROUTE; Start 07/18/25 at 10:18; Stop 07/18/25 at 10:19; Status DC Tranexamic Acid 1,000 mg STK-MED ONCE IV Last administered on 07/18/25at 11:14; Start 07/18/25 at 11:14; Stop 07/18/25 at 11:16; Status DC Sodium Chloride 1,000 ml @ 100 mls/hr Q10H IV Last administered on 07/19/25at 01:13; Start 07/18/25 at 12:00; Stop 07/19/25 at 11:59 Polyethylene Glycol 17 gm DAILY PO; Start 07/19/25 at 09:00; Stop 08/18/25 at 08:59 Bisacodyl 10 mg DAILY PRN RC; Start 07/21/25 at 12:00; Stop 08/20/25 at 11:59 Ketorolac Tromethamine 15 mg Q6H PRN IV; Start 07/19/25 at 12:00; Stop 07/24/25 at 11:59 Ferrous Fumarate 324 mg DAILY PRN PO; Start 07/18/25 at 12:00; Stop 08/17/25 at 11:59 Calcium Carbonate 500 mg Q12H PRN PO; Start 07/18/25 at 12:00; Stop 08/17/25 at 11:59 Ondansetron HCl 4 mg Q6H PRN IVP; Start 07/18/25 at 12:00; Stop 08/17/25 at 11:59 Cefazolin Sodium 2 gm Q8H IVPB Last administered on 07/19/25at 01:12; Start 07/18/25 at 17:00; Stop 07/19/25 at 01:01; Status DC Cyclobenzaprine HCl 5 mg Q8H PRN PO; Start 07/18/25 at 12:00; Stop 08/17/25 at 11:59 Docusate Sodium 100 mg BID PO Last administered on 07/18/25at 20:36; Start 07/18/25 at 21:00; Stop 08/17/25 at 20:59 Ketorolac Tromethamine 15 mg Q8H IV Last administered on 07/19/25at 04:34; Start 07/18/25 at 12:00; Stop 07/19/25 at 04:01; Status DC Aspirin 325 mg DAILY PO; Start 07/19/25 at 09:00; Stop 08/18/25 at 08:59 Potassium Chloride 100 ml @ 100 mls/hr AD PRN IV; Start 07/18/25 at 12:00; Stop 08/17/25 at 11:59 Potassium Chloride 20 meq AD PRN PO; Start 07/18/25 at 12:00; Stop 08/17/25 at 11:59 Potassium Chloride 20 meq AD PRN PO; Start 07/18/25 at 12:00; Stop 08/17/25 at 11:59 Tramadol HCl 50 mg Q6H PRN PO; Start 07/18/25 at 12:00; Stop 07/23/25 at 11:59 Acetaminophen/ Hydrocodone Bitart Q4H PRN PO; Start 07/18/25 at 12:00; Stop 07/18/25 at 11:53; Status DC Amlodipine Besylate 5 mg DAILY PO; Start 07/19/25 at 09:00; Stop 08/18/25 at 08:59 Lisinopril 40 mg AM PO; Start 07/19/25 at 09:00; Stop 08/18/25 at 08:59 Metoprolol Tartrate 25 mg BID PO Last administered on 07/18/25at 20:36; Start 07/18/25 at 21:00; Stop 08/17/25 at 20:59 Atorvastatin Calcium 80 mg HS PO Last administered on 07/18/25at 20:36; Start 07/18/25 at 21:00; Stop 08/17/25 at 20:59 Pantoprazole Sodium 40 mg HS PO Last administered on 07/18/25at 20:36; Start 07/18/25 at 21:00; Stop 08/17/25 at 20:59 Vitamin B Complex 1,000 mcg QODAY PO; Start 07/20/25 at 09:00; Stop 08/19/25 at 08:59 Dexamethasone Sodium Phosphate 4 mg STK-MED ONCE .ROUTE; Start 07/18/25 at 11:40; Stop 07/18/25 at 11:40; Status DC Ondansetron HCl 4 mg STK-MED ONCE .ROUTE; Start 07/18/25 at 11:40; Stop 07/18/25 at 11:40; Status DC Glycopyrrolate 1 mg STK-MED ONCE .ROUTE; Start 07/18/25 at 11:40; Stop 07/18/25 at 11:40; Status DC Neostigmine Methylsulfate 10 mg STK-MED ONCE IV; Start 07/18/25 at 11:40; Stop 07/18/25 at 11:40; Status DC Acetaminophen/ Hydrocodone Bitart 1 tab Q4H PRN PO Last administered on 07/18/25at 17:19; Start 07/18/25 at 12:00; Stop 07/23/25 at 11:59 Acetaminophen/ Hydrocodone Bitart 2 tab Q4H PRN PO; Start 07/18/25 at 12:00; Stop 07/23/25 at 11:59 Fentanyl Citrate 100 mcg STK-MED ONCE .ROUTE Last administered on 07/18/25at 12:26; Start 07/18/25 at 12:12; Stop 07/18/25 at 12:12; Status DC COURTNEY ENRIQUEZ NP Jul 19, 2025 08:02
[2025-07-19] MEDS: LISINOPRIL 40 MG TABLET PO SCH (08:28)
[2025-07-19] MEDS: amLODIPine 5 MG TAB PO SCH (08:28)
[2025-07-19] MEDS: ASPIRIN 325MG EC TAB PO SCH (08:28)
--- NOTE | 2025-07-19 15:54 | NUR ---
DC PLAN VISITED WITH PATIENT. PATIENT LIVES ALONE. INDEPENDENT ABLE TO PERFORM ADL'S. PATIENT HAS NO SERVICES OR DME. SAID WOULD PREFER TO GO HOME. DAUGHTER IS GOING BACK HOME AND WORRIED ABOUT DAD. ELISABETH PAPPAS DARREL MARLEN YVONNERAMILA SIGNED. PACKET MADE AND SENT. ELIAS DONE. Addendum: 07/19/25 at 1604 by ALYX NEWMAN RN CM Amended: Links added.
[2025-07-20] VITALS: BP 159/60; PULSE 64; RESP 22; TEMP 97.6
--- NOTE | 2025-07-20 04:28 | NUR ---
PATIENT UP TO RESTROOM WITH WALKER THIS SHIFT, TOLERATED WELL, HAS DENIED PAIN THIS SHIFT. EDUCATED ON SAFETY PRECAUTIONS, BED TO LOWEST LEVEL.
[2025-07-20 08:00] VITALS: BP 118/52; PULSE 74; RESP 16; TEMP 98.1; O2SAT 97
[2025-07-20] MEDS: CYANOCOBALAMIN (VITAMIN B-12) 1,000 MCG TABLET PO SCH (10:41)
[2025-07-20 12:08] VITALS: BP 159/71; PULSE 67; RESP 16; TEMP 98
--- NOTE | 2025-07-20 14:30 | NUR ---
CM NOTE SPOKE TO GINI CORREA AT [facility], STATES PT IS ACCEPTED. UPDATED PRIMARY NURSE.
[2025-07-20] MEDS ORDERED: CYCL-309 PO (15:08)
[2025-07-20] MEDS ORDERED: ASPI-891 PO (15:08)
[2025-07-20] MEDS ORDERED: HYDR-4060 PO (15:08)
[2025-07-20] MEDS ORDERED: DOCU-116 PO (15:08)
--- NOTE | 2025-07-20 16:19 | HMCIMG ---
Intraoperative fluoroscopic assessment of the left hip INDICATION: Left hip arthroplasty COMPARISON: None available Fluoroscopy time: 14 seconds. FINDINGS: 5 images demonstrate interval ORIF of the left hip with left hip arthroplasty IMPRESSION: Details of the findings and operative report
--- NOTE | 2025-07-20 16:48 | NUR ---
DISCHARGE NOTE EDUCATION GIVEN TO PT ON DISCHARGE INFORMATION. IV CATHETER REMOVED AND INTACT. REPORT GIVEN TO ANDREW CASTRO AT [facility] FOR [facility]. PT PENDING TIKI MILLER. Addendum: 07/20/25 at 1709 by DINORAH STAPLES LVN LVN PATIENT TAKEN BY STELLA FAIRBANKS. NO FURTHER COMMENTS.
== END 2025-07-20 17:10 ==
LOC: DAH 05:59 → DAHIP 06:00 → DAH 06:00 → EDSTATUS 08:00 → 4CH 14:30
PROVIDERS: ADMIT Student in an Organized Health Care Education/Training Program; ATTEND Student in an Organized Health Care Education/Training Program
DX: M16.12 Unilateral primary osteoarthritis, left hip (principal); M25.552 Pain in left hip; D62 Acute posthemorrhagic anemia; I10 Essential (primary) hypertension; E78.5 Hyperlipidemia, unspecified; K21.9 Gastro-esophageal reflux disease without esophagitis; Z79.899 Other long term (current) drug therapy; Z98.890 Other specified postprocedural states
CPT/HCPCS: 27130; 96365; 96375; 86850; 86900; 86901; 36415 ×2; 73503; 73521; 97161; 97116 ×4; 96376; 96366; 80048; 85027; G0378 ×54; A4663; C1776; J7120; J3010; J3490 ×7; J0330; J2003; J2704; J2405; J2710; J1100; J2795; J1885 ×3; J2371; J0690 ×4; A4649 ×3; A4930 ×2; A6255; A5120; A4215; A4223 ×2; A4213; A4222; A4221; A4216; J7030; A4606